=== PATIENT | female | born 1995 | race Caucasian/White ===

== ENCOUNTER → 2020-01-20 12:01 | Outpatient (BNVA) | payer BC, SELFPAY | PROVIDERS: Family Provider Family Medicine; PCP Family Medicine; Visit Provider Nurse Practitioner | DX: Z11.59 Encounter for screening for other viral diseases (principal) | CPT/HCPCS: 87635 ==

== ENCOUNTER 2020-05-15 07:32 | Outpatient (CLI) | payer BC, SELFPAY ==
[2020-05-15 08:04] LABS: Basophils # 0.1 10^3/uL (0.0-0.1); Basophils % 0.5 %; Eosinophils # 0.2 10^3/uL (0.0-0.8); Eosinophils % 1.9 %; Hematocrit 41.8 % (37.0-47.0); Hemoglobin 13.4 g/dL (11.5-15.3); Lymphocytes # 2.8 10^3/uL (0.8-4.8); Lymphocytes % 31.1 %; Mean Corpuscular HGB Conc 32.1 g/dL (30.0-36.0); Mean Corpuscular Hemoglobin 27.6 pg (28.0-34.0); Mean Corpuscular Volume 86.2 fL (81-99); Mean Platelet Volume 10.8 fL (7.4-10.4); Monocytes # 0.6 10^3/uL (0.2-0.9); Monocytes % 6.3 %; Neutrophils # 5.36 10^3/uL (1.8-7.7); Neutrophils % 58.8 %; Nucleated Red Blood Cells % 0 %; Platelet Count 361 10^3/cmm (130-400); Red Blood Count 4.85 10^6/uL (4.1-5.3); Red Cell Distribution Width 13.7 % (12.1-15.1); White Blood Count 9.1 10^3/uL (4.0-10.0)
[2020-05-15 08:21] LABS: Alanine Aminotransferase 27 U/L (0-33); Albumin Level 4.3 g/dL (3.5-5.2); Alkaline Phosphatase 85 IU/L (35-105); Anion Gap 14.2 (5-19); Aspartate Amino Transferase 31 U/L (0-32); Carbon Dioxide 24 mmol/L (22-29); Chloride 105 mmol/L (98-107); Globulin 2.7 g/dL (1.3-4.6); Glucose 113 mg/dL (65-115); Lipase 29 U/L (13-60); Potassium 4.2 mmol/L (3.5-5.1); Sodium 139 mmol/L (136-145); Total Bilirubin 0.5 mg/dL (0.15-1.2)
[2020-05-15 09:47] LABS: Blood Urea Nitrogen 13 mg/dL (6-20); Calcium 8.9 mg/dL (8.5-10.5); Osmolality Calculated 289 mOsm/kg (285-295); Thyroid Stimulating Hormone 0.89 uIU/mL (0.27-4.20)
[2020-05-15 10:18] LABS: Glomerular Filtration Rate 149.1 mL/min (90-130)
== END 2020-05-15 07:33 | disposition home or self-care (01) ==
PROVIDERS: Family Provider Family Medicine; Visit Provider Surgery
DX: K21.9 Gastro-esophageal reflux disease without esophagitis (principal)
CPT/HCPCS: 80053; 83690; 84443; 85025

== ENCOUNTER 2020-05-20 08:08 | Outpatient (CLI) | payer BC, SELFPAY | END 2020-05-20 08:09 | disposition home or self-care (01) | LOC: LAB 08:11 | PROVIDERS: PCP Family Medicine; Visit Provider Surgery | DX: R19.4 Change in bowel habit (principal) | CPT/HCPCS: 83630; 87493; 87506 ==

== ENCOUNTER 2020-09-25 14:31 | Outpatient (CLI) | payer BC, SELFPAY ==
--- NOTE | 2020-09-25 14:36 | CT_ITS ---
WS: [id number] CT pelvis TECHNIQUE: Noncontrast CT of the pelvis with coronal and sagittal reformatted images. CLINICAL INFORMATION: N89.8 - Other specified noninflammatory disorders of vagina COMPARISON: None. DLP: 938.[address] scans at [facility] use at least one of these dose optimization techniques: automat ed exposure control; mA and/or kV adjustment per patient size (includes targeted exams where dose is matched to clinical indication); or iterative reconstruction. FINDINGS: IUD appears in good position. No free fluid in the abdomen or pelvis. Normal noncontrast adnexa. Norm al sigmoid colon. Appendix is normal in right lower quadrant. Tiny fat-containing umbilical hernia. N o inguinal or pelvic lymphadenopathy. Bladder is decompressed. In the area of concern, there is mild distention of the cervix and vagina in determinant on this noncontrast study but may represent secretions or fluid. This is difficult to fur ther evaluate. Lower uterine segment and internal cervical os appear normal CT/CT pelvis wo con [id number] IMPRESSION: 1. IUD in good position. 2. Normal appearing noncontrast uterus and adnexa. 3. Mild distention of the cervix and vagina indeterminate on this noncontrast study but may represent benign low-attenuation secretions or fluid. This is dif ficult to further evaluate without contrast. This can be further evaluated with ultrasound if clinical concern. 4. No free fluid in the pelvis. 5. No pelvic or inguinal lymphadenopathy. 6. Normal sigmoid colon.
== END 2020-09-25 14:32 | disposition home or self-care (01) ==
LOC: RADWPI 14:36
PROVIDERS: PCP Family Medicine; Visit Provider Obstetrics & Gynecology
DX: N89.8 Other specified noninflammatory disorders of vagina (principal); Z97.5 Presence of (intrauterine) contraceptive device
CPT/HCPCS: 72192

== ENCOUNTER 2020-10-05 20:35 | Emergency (ER) | payer BC, SELFPAY ==
[2020-10-05 20:40] VITALS: PULSE 76; RESP 18; TEMP 35.9; O2SAT 96; BMI 41.4
--- NOTE | 2020-10-05 20:48 | W.ED.NAVMDI ---
HPI - Nausea/Vomiting/Diarrhea General: Chief complaint: Nausea/Vomiting/Diarrhea Stated complaint: nausea, vomiting, diarrhea Time Seen by Provider: 10/05/20 20:46 History of Present Illness: HPI Narrative: Patient is a 24-year-old female comes to the ED with nausea vomiting and diarrhea. Patient states that she developed diarrhea on Monday. Today she started developing nausea and has had multiple episodes of emesis. She reports having the chills and is a little diaphoretic especially after she vomits. She has some abdominal cramping and some generalized abdominal pain that developed after all her her vomiting. Patient did say that her son had same symptoms within the last couple days. Denies any vaginal bleeding or vaginal discharge. Patient says she has an IUD placed and her last menstrual period was September 19, 2020. Associated nausea: Yes Associated symtoms: Reports diaphoresis and nausea; Denies change in vision, chest pain, dysuria, fatigue, headache(s) or palpitations Review of Systems Const: Reports: chills, change in appetite (Decreased) and diaphoresis; Denies: fever(s) or fatigue Eyes: Denies: change in vision or eye discomfort ENMT: Denies: throat pain, odynophagia, nasal discharge or nasal congestion Card: Denies: chest pain, palpitations, edema, swelling of feet/ankles, dyspnea on exertion or orthopnea Resp: Denies: dyspnea, productive cough or non-productive cough GI: Reports: nausea, vomiting and diarrhea; Denies: abdominal pain, constipation or hematochezia : Denies: flank pain, dysuria or hematuria Musc: Denies: neck pain, back pain or extremity swelling Skin/Breast: Denies: rash or new lesions Neuro: Denies: headache(s), numbness in extremities or weakness in extremities PFS ED PFSH: Medical History Depression with anxiety Diagnosed at the age of 17 and has been on medication and therapy. This is managed by her primary care provider. Endometriosis Diagnosed at the age of 15 and had a laparoscopy at [facility] in [place] No pertinent past medical history Denies diabetes, asthma, hypertension, seizures, DVT/PE PCP: Dr. Franco Surgical History Status post laparoscopy 2014--diagnostic laparoscopy with removal and ablation of endometriosis performed by Dr. Chaney in [facility]--these records have been requested. Family History Grandfather Colon cancer maternal, daignosed at age 70 Diabetes maternal Heart disease maternal Hyperlipidemia maternal Mother Hypertension Endometriosis Sister Endometriosis Denies family history of Ovarian cancer Breast cancer Uterine cancer Thyroid condition Stroke Social History Smoking and tobacco status: never smoked Alcohol intake: never Female Reproductive History: Date of last menstrual period: 09/19/20 Physical Exam Const: COMMON NORMALS: patient oriented x3 and alert GENERAL APPEARANCE: cooperative, ill appearing and diaphoretic HENMT: COMMON NORMALS: normocephalic HEAD & SCALP: normocephalic MOUTH: moist mucous membranes abnormal Details: parched THROAT: posterior oropharynx normal and uvula midline Eye: COMMON NORMALS: Equal, round and reactive pupils present PUPIL: Yes Equal, round and reactive pupils present Neck/C-Spine: COMMON NORMALS: supple GENERAL: Yes normal visual inspection Resp: COMMON NORMALS: normal respiratory effort, No retractions, No use of accessory muscles and clear to auscultation bilaterally AUSCULTATION: clear to auscultation bilaterally Cardio: COMMON NORMALS: regular rate, regular rhythm, S1 normal heart sound present, S2 normal heart sound present, No gallops present (Cardio), No clicks present (Cardio), No murmurs present (Cardio) and Peripheral pulses 2+ throughout RATE: regular rate RHYTHM: regular rhythm HEART SOUNDS: S1 normal heart sound present and S2 normal heart sound present PERIPHERAL PULSES: Peripheral pulses 2+ throughout GI: COMMON NORMALS: Normal to inspection, nondistended, normoactive bowel sounds present, Soft to palpation and no masses PALPATION: Yes Soft to palpation and Yes Tenderness to palpation present (GI) (Mild generalized tenderness. No localized tenderness. Negative McBurney's) : COMMON NORMALS: Yes no CVA tenderness BLADDER/KIDNEY EXAM: Yes no CVA tenderness Back/Pelvis: COMMON NORMALS: no CVA tenderness Extremity: COMMON NORMALS: normal to inspection and no pedal edema Neuro: COMMON NORMALS: patient oriented x3 and moves all extremities SENSORIUM/ORIENTATION: Yes alert Skin: GENERAL SKIN EXAM: dry skin Course Reevaluation(s): Reevaluation #1: Patient says after she received the Reglan and IV fluids her symptoms have improved. She has not had any more episodes of emesis since Reglan was given. Patient would like to go home and rest. Time: 23:00 Vital Signs: Vital signs: Vital Signs Temperature 96.6 F L 10/05/20 20:40 Pulse Rate 81 10/05/20 23:22 Respiratory Rate 17 10/05/20 23:22 Blood Pressure 132/79 10/05/20 23:22 Pulse Oximetry 100 10/05/20 23:22 MDM - Nausea/Vomiting/Diarrhea MDM Narrative: Medical decision making narrative: Patient is a 24-year-old female comes to the ED with nausea/vomiting and diarrhea. Diarrhea started on Monday and her symptoms of nausea and vomiting started today. Patient says one of her children has same symptoms. Exam shows a 24-year-old female who appears ill and uncomfortable. She has some mild generalized tenderness in the abdomen and no other remarkable exam findings. White blood cell count 15.3 and the rest of CBC and CMP were unremarkable. hCG negative, lipase normal and UA unremarkable as well. Vitals are stable and she is afebrile. CT of abdomen showed no acute findings but did note some possible small bowel enteritis. Patient was given IV fluids, Zofran and Reglan and her symptoms improved. She had no more episodes of emesis after getting Reglan. Patient was discharged home and diagnosed with enteritis sent home with a prescription for Reglan to treat nausea. She was told to continue drinking plenty of fluids and staying hydrated. Return to ED precautions given. Follow-up with PCP in 7 to 10 days reevaluation. Patient understood and agreed with plan. Lab Data: Attestation: I reviewed the patient's lab results. Labs: Lab Results 10/05/20 10/05/20 10/05/20 Range/Units 20:50 20:50 20:50 WBC 15.3 H (4.0-10.0) 10^3/ uL RBC 5.03 (4.1-5.3) 10^6/u L Hgb 14.4 (11.5-15.3) g/dL Hct 43.7 (37.0-47.0) % MCV 86.9 (81-99) fL MCH 28.6 (28.0-34.0) pg MCHC 33.0 (30.0-36.0) g/dL RDW 13.6 (12.1-15.1) % Plt Count 366 (130-400) 10^3/c mm MPV 11.0 H (7.4-10.4) fL Neut % (Auto) 75.8 % Lymph % (Auto) 14.8 % Wythe % (Auto) 6.9 % Eos % (Auto) 1.6 % Baso % (Auto) 0.4 % Neut # (Auto) 11.60 H (1.8-7.7) 10^3/u L Lymph # (Auto) 2.3 (0.8-4.8) 10^3/u L Wythe # (Auto) 1.1 H (0.2-0.9) 10^3/u L Eos # (Auto) 0.3 (0.0-0.8) 10^3/u L Baso # (Auto) 0.1 (0.0-0.1) 10^3/u L Nucleated RBC % (a uto) 0 % Nucleated RBCs # 0.0 /100WBC Sodium 133 L (136-145) mmol/L Potassium 3.9 (3.5-5.1) mmol/L Chloride 102 (98-107) mmol/L Carbon Dioxide 22 (22-29) mmol/L Anion Gap 12.9 (5-19) BUN 12 (6-20) mg/dL Creatinine 0.6 (0.5-0.9) mg/dL GFR Calculation 120.8 (90-130) mL/min Glucose 115 (65-115) mg/dL Calculated Osmolal ity 277 L (285-295) mOsm/k g Calcium 9.4 (8.5-10.5) mg/dL Total Bilirubin 0.5 (0.15-1.2) mg/dL AST 34 H (0-32) U/L ALT 48 H (0-33) U/L Alkaline Phosphata se 82 (35-105) IU/L Total Protein 7.9 (6.6-8.7) g/dL Albumin 4.7 (3.5-5.2) g/dL Globulin 3.2 (1.3-4.6) g/dL Lipase 29 (13-60) U/L HCG, Qual Negative (Negative) Urine Color (Yellow) Urine Appearance (CLEAR) Urine pH (5-7) Ur Specific Gravit y (1.005-1.030) Urine Protein (Negative) Urine Glucose (UA) (Normal) Urine Ketones (Negative) Urine Blood (Negative) Urine Nitrate (Negative) Urine Bilirubin (Negative) Urine Urobilinogen (Negative) mg/dL Ur Leukocyte Aletha ase (Negative) Urine RBC (0-2) /hpf Urine WBC (0-5) /hpf Ur Squamous Epith Cells (0-5) /hpf Amorphous Sediment Urine Bacteria (NONE) /hpf Urine Mucus /hpf 10/05/20 Range/Units 21:40 WBC (4.0-10.0) 10^3/ uL RBC (4.1-5.3) 10^6/u L Hgb (11.5-15.3) g/dL Hct (37.0-47.0) % MCV (81-99) fL MCH (28.0-34.0) pg MCHC (30.0-36.0) g/dL RDW (12.1-15.1) % Plt Count (130-400) 10^3/c mm MPV (7.4-10.4) fL Neut % (Auto) % Lymph % (Auto) % Wythe % (Auto) % Eos % (Auto) % Baso % (Auto) % Neut # (Auto) (1.8-7.7) 10^3/u L Lymph # (Auto) (0.8-4.8) 10^3/u L Wythe # (Auto) (0.2-0.9) 10^3/u L Eos # (Auto) (0.0-0.8) 10^3/u L Baso # (Auto) (0.0-0.1) 10^3/u L Nucleated RBC % (a uto) % Nucleated RBCs # /100WBC Sodium (136-145) mmol/L Potassium (3.5-5.1) mmol/L Chloride (98-107) mmol/L Carbon Dioxide (22-29) mmol/L Anion Gap (5-19) BUN (6-20) mg/dL Creatinine (0.5-0.9) mg/dL GFR Calculation (90-130) mL/min Glucose (65-115) mg/dL Calculated Osmolal ity (285-295) mOsm/k g Calcium (8.5-10.5) mg/dL Total Bilirubin (0.15-1.2) mg/dL AST (0-32) U/L ALT (0-33) U/L Alkaline Phosphata se (35-105) IU/L Total Protein (6.6-8.7) g/dL Albumin (3.5-5.2) g/dL Globulin (1.3-4.6) g/dL Lipase (13-60) U/L HCG, Qual (Negative) Urine Color Yellow (Yellow) Urine Appearance Clear (CLEAR) Urine pH 5 (5-7) Ur Specific Gravit y 1.030 (1.005-1.030) Urine Protein Neg (Negative) Urine Glucose (UA) Norm (Normal) Urine Ketones Negative (Negative) Urine Blood 2+ H (Negative) Urine Nitrate Negative (Negative) Urine Bilirubin 1+ H (Negative) Urine Urobilinogen Norm (Negative) mg/dL Ur Leukocyte Aletha ase Negative (Negative) Urine RBC 0-4 H (0-2) /hpf Urine WBC 0-4 H (0-5) /hpf Ur Squamous Epith Cells 0-4 H (0-5) /hpf Amorphous Sediment Not Reportable Urine Bacteria 1+ H (NONE) /hpf Urine Mucus 1+ /hpf Imaging Data^: CT Abd/Pel: Attestation: I personally reviewed and interpreted this imaging study as follows: Radiologist's impression: [address] [address] [address] Scan Report Signed Patient: Tatiana Jacobson Unit #: [id number] : 1995 Age/Sex: 24 / F ADM Date: 10/05/20 Loc: ER Room/Bed: Attending Dr: Ordering Provider/Ordering MD: Ricky Wasserman Date of Service: 10/05/20 Procedure(s): CT abdomen pelvis w con* [id number] Accession Number(s): [id number] Report Number: [id number] PROCEDURE INFORMATION: Exam: CT Abdomen And Pelvis With Contrast Exam date and time: 10/05/2020 9:29 PM Age: 24 years old Clinical indication: Abdominal tenderness and nausea and vomiting; Prior surgery; Surgery type: Gb, laproscopic; Additional info: N/v/diarrhea x 3 days, and abdominal tenderness TECHNIQUE: Imaging protocol: Computed tomography of the abdomen and pelvis with contrast. Radiation optimization: All CT scans at this facility use at least one of these dose optimization techniques: automated exposure control; mA and/or kV adjustment per patient size (includes targeted exams where dose is matched to clinical indication); or iterative reconstruction. Contrast material: VISI 320; Contrast volume: 95 ml; Contrast route: INTRAVENOUS (IV); COMPARISON: CT pelvis wo con [id number] 09/25/2020 2:40 PM RADIATION DOSE METRICS: Total DLP (mGy-cm): 1857.51 FINDINGS: Liver: Normal. No mass. Gallbladder and bile ducts: Cholecystectomy. No dilation of biliary system. Pancreas: Normal. No ductal dilation. Spleen: Normal. No splenomegaly. Adrenal glands: Normal. No mass. Kidneys and ureters: Normal. No hydronephrosis. Stomach and bowel: Bowel loops are decompressed without obstruction. No evidence perforation. No focal inflammatory wall thickening. Small bowel loops are filled with fluid. Mild increase in mucosal enhancement pattern. Stomach decompressed. Appendix: No evidence of appendicitis. Intraperitoneal space: Unremarkable. No free air. No significant fluid collection. Vasculature: Vascular structures are patent. No aneurysm. No bleeding. Lymph nodes: Unremarkable. No enlarged lymph nodes. Urinary bladder: Bladder decompressed. Reproductive: IUD in the uterus. No adnexal mass. Bones/joints: Unremarkable. No acute fracture. Soft tissues: Unremarkable. CT/CT abdomen pelvis w con* [id number] IMPRESSION: 1. No focal inflammatory process in the abdomen or pelvis identified. 2. No significant changes from 09/25/2020. 3. Small bowel enteritis changes are not excluded. Radiation Dose CTDIVOL = (mGy): DLP = 1857.51 (mGy-cm) Dictated By: Bairon Alvarez Signed By: Bairon Alvarez Signed Date/Time: 10/05/202210 DD/ 09 Discharge Plan Discharge Patient Disposition: Home Clinical Impression: Enteritis Condition: Stable Prescriptions: New metoclopramide HCl 10 mg tablet 10 mg PO Q6H PRN (Reason: nausea and vomiting) Qty: 20 RF: 0 No Action propranolol 60 mg capsule,extended release 24 hr 60 mg PO DAILY RF: 0 sertraline [Zoloft] 100 mg tablet 100 mg PO DAILY RF: 0 Mirena 20 mcg/24 hours (6 yrs) 52 mg intrauterine device See Rx Instructions .ROUTE .COMPLEX RF: 0 Zyrtec 10 mg capsule 10 mg PO DAILY RF: 0 Discharge Orders: Discharge ED (Routine); Ordered 10/05/20 Ordered By: Ricky Wasserman Referrals: Jose Manuel Franco MD [Primary Care Provider] - Discharge Diet: Advance as tolerated Discharge Activity: Increase activity as tolerated Patient Instructions: Viral Syndrome (ED) Activity Restrictions/Additional Instructions: Follow-up with medical provider as directed in 5 to 7 days for reevaluation. Take medications as prescribed. Drink plenty of fluids and stay hydrated. Advance diet as tolerated. Return to the ER or your medical provider if condition worsens. Please read and understand discharge instructions. If any questions, please ask. 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
[2020-10-05] MEDS: sodium chloride 0.9% 1,000 ML 999 ML IV (20:54)
[2020-10-05] MEDS: ondansetron 2 mg/ML SDV 2 mL 4 MG IVP (20:55)
[2020-10-05 20:58] LABS: Basophils # 0.1 10^3/uL (0.0-0.1); Basophils % 0.4 %; Eosinophils # 0.3 10^3/uL (0.0-0.8); Eosinophils % 1.6 %; Hematocrit 43.7 % (37.0-47.0); Hemoglobin 14.4 g/dL (11.5-15.3); Lymphocytes # 2.3 10^3/uL (0.8-4.8); Lymphocytes % 14.8 %; Mean Corpuscular Hemoglobin 28.6 pg (28.0-34.0); Mean Corpuscular Volume 86.9 fL (81-99); Monocytes # 1.1 10^3/uL (0.2-0.9); Monocytes % 6.9 %; Neutrophils % 75.8 %; Nucleated Red Blood Cells % 0 %; Platelet Count 366 10^3/cmm (130-400); Red Blood Count 5.03 10^6/uL (4.1-5.3); Red Cell Distribution Width 13.6 % (12.1-15.1); White Blood Count 15.3 10^3/uL (4.0-10.0)
--- NOTE | 2020-10-05 21:08 | CTR_ITS ---
PROCEDURE INFORMATION: Exam: CT Abdomen And Pelvis With Contrast Exam date and time: 10/05/2020 9:29 PM Age: 24 years old Clinical indication: Abdominal tenderness and nausea and vomiting; Prior surgery; Surgery type: Gb, laproscopic; Additional info: N/v/diarrhea x 3 days, and abdominal tenderness TECHNIQUE: Imaging protocol: Computed tomography of the abdomen and pelvis with contrast. Radiation optimization: All CT scans at this facility use at least one of these dose optimization techniques: automated exposure control; mA and/or kV adjustment per patient size (includes targeted exams where dose is matched to clinical indication); or iterative reconstruction. Contrast material: VISI 320; Contrast volume: 95 ml; Contrast route: INTRAVENOUS (IV); COMPARISON: CT pelvis wo con [id number] 09/25/2020 2:40 PM RADIATION DOSE METRICS: Total DLP (mGy-cm): 1857.51 FINDINGS: Liver: Normal. No mass. Gallbladder and bile ducts: Cholecystectomy. No dilation of biliary system. Pancreas: Normal. No ductal dilation. Spleen: Normal. No splenomegaly. Adrenal glands: Normal. No mass. Kidneys and ureters: Normal. No hydronephrosis. Stomach and bowel: Bowel loops are decompressed without obstruction. No evidence perforation. No focal inflammatory wall thickening. Small bowel loops are filled with fluid. Mild increase in mucosal enhancement pattern. Stomach decompressed. Appendix: No evidence of appendicitis. Intraperitoneal space: Unremarkable. No free air. No significant fluid collection. Vasculature: Vascular structures are patent. No aneurysm. No bleeding. Lymph nodes: Unremarkable. No enlarged lymph nodes. Urinary bladder: Bladder decompressed. Reproductive: IUD in the uterus. No adnexal mass. Bones/joints: Unremarkable. No acute fracture. Soft tissues: Unremarkable. CT/CT abdomen pelvis w con* [id number] IMPRESSION: 1. No focal inflammatory process in the abdomen or pelvis identified. 2. No significant changes from 09/25/2020. 3. Small bowel enteritis changes are not excluded. Radiation Dose CTDIVOL = (mGy): DLP = 1857.51 (mGy-cm)
[2020-10-05 21:17] LABS: HCG, Serum Qual Negative (Negative)
[2020-10-05 21:33] LABS: Alanine Aminotransferase 48 U/L (0-33); Albumin Level 4.7 g/dL (3.5-5.2); Alkaline Phosphatase 82 IU/L (35-105); Anion Gap 12.9 (5-19); Aspartate Amino Transferase 34 U/L (0-32); Blood Urea Nitrogen 12 mg/dL (6-20); Calcium 9.4 mg/dL (8.5-10.5); Carbon Dioxide 22 mmol/L (22-29); Chloride 102 mmol/L (98-107); Globulin 3.2 g/dL (1.3-4.6); Glomerular Filtration Rate 120.8 mL/min (90-130); Glucose 115 mg/dL (65-115); Lipase 29 U/L (13-60); Osmolality Calculated 277 mOsm/kg (285-295); Potassium 3.9 mmol/L (3.5-5.1); Sodium 133 mmol/L (136-145); Total Bilirubin 0.5 mg/dL (0.15-1.2); Total Protein 7.9 g/dL (6.6-8.7)
[2020-10-05] MEDS: iodixanol 320 mg/mL 100mL Btl IV (21:42)
[2020-10-05 21:52] LABS: Bacteria Urine 1+ /hpf; Bilirubin Urine 1+ (Negative); Blood Urine 2+ (Negative); Glucose Urine UA Norm (Normal); Ketones Urine Negative (Negative); Leukocyte Esterase Urine Negative (Negative); Nitrate Urine Negative (Negative); Protein Urine Neg (Negative); RBC Urine 0-4 /hpf (0-2); Squamous Epithelial Cell Urine 0-4 /hpf (0-5); Urine Appearance Clear (CLEAR); Urine Color Yellow (Yellow); Urobilinogen Urine Norm (Negative); WBC Urine 0-4 /hpf (0-5); pH Urine 5 (5-7)
[2020-10-05 21:53] LABS: Mucus Urine 1+ /hpf
[2020-10-05] MEDS: metoclopramide 5 mg/mL SDV 2 mL 10 MG IVP (22:06)
[2020-10-05] MEDS: promethazine 25 mg/mL SDV 1 mL IM (23:14)
[2020-10-05 23:22] VITALS: BP 132/79; PULSE 81; RESP 17; O2SAT 100
== END 2020-10-05 23:22 | disposition home or self-care (01) ==
PROVIDERS: Emergency Provider Physician Assistant; PCP Family Medicine
DX: K52.9 Noninfective gastroenteritis and colitis, unspecified (principal)
CPT/HCPCS: 74177; 80053; 81001; 83690; 84703; 85025; 88175; 96361; 96372; 96374; 96375; 99283; J2405; J2550; J2765; J7030; Q9967

== ENCOUNTER → 2021-04-23 14:03 | Outpatient (BNVA) | payer BC, SELFPAY | PROVIDERS: PCP Nurse Practitioner Family; Visit Provider Obstetrics & Gynecology | DX: N89.8 Other specified noninflammatory disorders of vagina (principal) | CPT/HCPCS: 87635 ==

== ENCOUNTER 2021-04-29 07:51 | Day surgery (SDC) | payer BC, SELFPAY ==
[2021-04-28 12:26] VITALS: BMI 39.9
[2021-04-29] VITALS (14 sets, daily range): BP systolic 122–153; BP diastolic 78–93; PULSE 71–94; RESP 15–21; TEMP 36.7–36.8; O2SAT 93–100
[2021-04-29 08:02] LABS: OR HCG Qualitative Urine Negative (Negative)
[2021-04-29] MEDS: sodium chloride 0.9% 1,000 ML 30 ML IV ×2 (08:10→11:48)
[2021-04-29] MEDS: scopolamine 1.5 Patch 1 PATCH TRANSDERMA (08:15)
--- NOTE | 2021-04-29 08:29 | P.ANESASSM_ITS ---
Pre-Anesthetic Assessment Pre-Anesthetic Assessment: Height/Weight: Height 1.65 m Weight 108.862 kg Temp Pulse Resp BP Pulse Ox 98.1 F 86 18 153/88 98 04/29/21 08:00 04/29/21 08:00 04/29/21 08:00 04/29/21 08:00 04/29/21 08:00 Preop Diagnosis: Vaginal cyst Proposed Procedure: Operation Date: 04/29/21 09:10 Proposed Procedures p Excision of vaginal cyst N89.8 87632(Not Applicable) - Rinku Ríos MD Was Beta Jose Alberto taken within 24 hours: N/A Was Clonidine taken within 24 hours: N/A Last intake: Intake Last Liquid Date 04/28/21 Last Liquid Time 22:15 Last Solid Date 04/28/21 Last Solid Time 20:30 Social: Social History: No tobacco Exam: Pre-Anes Outpt Exam: alert, oriented x 3, clear to auscultation bilaterally and regular rate & rhythm Airway: Submandibular: WNL Cervical ROM: WNL MP: 2 History/ROS: No significant history except as noted (PONV Hx) and No significant complaints Neuropsych: Neuropsych: Anxiety and Depression Anesthetic Plan: ASA status: 2 Anesthesia: Anesthesia Evaluation and General Other: TIVA for severe PONV Risk of > 500 ml blood loss (7ml/kg in children): No Meds/Allergies Current Medications: Current Medications Generic Name Dose Route Start Last Admin Trade Name Freq PRN Reason Stop Dose Admin Sodium Chloride 1,000 mls @ 30 ml s/hr 04/29/21 08:00 04/29/21 08:10 Sodium Chloride 0.9% IV 04/30/21 07:59 30 mls/hr .Q24H LIAM Administration PFSH Anesthesia PFSH: Medical History Depression with anxiety Diagnosed at the age of 17 and has been on medication and therapy. Endometriosis Diagnosed at the age of 15 and had a laparoscopy at [facility] in [place] No pertinent past medical history Denies diabetes, asthma, hypertension, seizures, DVT/PE PCP: Dr. Franco Surgical History S/P laparoscopic cholecystectomy In 2017 Status post laparoscopy 2014--diagnostic laparoscopy with removal and ablation of endometriosis performed by Dr. Chaney in [facility]--these records have been requested and received and scanned. -----> 03/17/2015--multiple implants of endometriosis 2 on the anterior bladder flap, 5 on the left posteriorly, uterosacral ligaments bilaterally and all of these lesions were vaporized with laser. 2 implants on the left side overlying ureter which were not vaporized Family History Grandfather Colon cancer maternal, daignosed at age 70 Diabetes maternal Heart disease maternal Hyperlipidemia maternal Mother Hypertension Endometriosis Sister Endometriosis Denies family history of Ovarian cancer Breast cancer Uterine cancer Thyroid condition Stroke Social History Smoking and tobacco status: never smoked Alcohol intake: never Female Reproductive History: Date of last menstrual period: 04/11/21 Data Anesthesia CBC & Chem 7: 04/29/21 08:10 Other Labs: Laboratory Results - last 48 hr 04/29/21 07:55 Urine HCG, Qual Negative Cardiac Studies: No Data to Display
[2021-04-29 08:30] LABS: Basophils # 0.1 10^3/uL (0.0-0.1); Basophils % 0.7 %; Eosinophils # 0.2 10^3/uL (0.0-0.8); Hematocrit 43.7 % (37.0-47.0); Hemoglobin 14.7 g/dL (11.5-15.3); Lymphocytes # 2.6 10^3/uL (0.8-4.8); Lymphocytes % 29.1 %; Mean Corpuscular HGB Conc 33.6 g/dL (30.0-36.0); Mean Corpuscular Hemoglobin 28.8 pg (28.0-34.0); Mean Corpuscular Volume 85.7 fl (81-99); Mean Platelet Volume 10.5 fL (7.4-10.4); Monocytes # 0.5 10^3/uL (0.2-0.9); Monocytes % 5.8 %; Neutrophils # 5.44 10^3/uL (1.8-7.7); Neutrophils % 61.5 %; Nucleated Red Blood Cells % 0 %; Platelet Count 326 10^3/cmm (130-400); Red Cell Distribution Width 13.1 % (12.1-15.1); White Blood Count 8.8 10^3/uL (4.0-10.0)
[2021-04-29] MEDS: diphenhydrAMINE 50 mg/mL SDV 1mL 12.5 MG IVP (09:40)
--- NOTE | 2021-04-29 09:43 | P.HPUD_ITS ---
Surgery/Procedure H&P Update DATE OF PROCEDURE: April 29, 2021 DATE H&P PERFORMED: 04/06/21 H&P UPDATE INFORMATION: I have reviewed H&P completed within last 30 days, I have examined patient prior to procedure, No changes to prior documentation and H&P is in [facility] EMR on date indicated PREOP DIAGNOSIS: Vaginal cyst PLANNED PROCEDURE: Operation Date: 04/29/21 09:10 Proposed Procedures p Excision of vaginal cyst N89.8 09809(Not Applicable) - Rinku Ríos MD
[2021-04-29] MEDS: vasopressin 20 unit/mL INJ 4 UNIT INJECTION (10:22)
[2021-04-29] MEDS: ondansetron 2 mg/ML SDV 2 mL 4 MG IVP (11:11)
--- NOTE | 2021-04-29 11:13 | PM.OP ---
Operative Report Date of procedure: April 29, 2021 OPERATIVE REPORT Date of surgery: 04/29/2021 Date of dictation: 04/29/2021 Preoperative diagnosis: Vaginal wall cyst Postoperative diagnosis/findings: 5 cm vaginal wall cyst about 2 to 3 cm from the introitus in the posterior wall extending from 5:00 to 7:00. A secondary cyst was noted up in the lateral fornix on the right side measuring about 1 cm with clear fluid which was drained. Procedure done: Vaginal wall cyst excision Specimens removed/disposition of specimens: Vaginal tissue, cyst wall and cyst contents Surgeon: Dr. Rinku Burch inside sales assistant: Cheryl Jennings Anesthesia: IV sedation Estimated blood loss: 50 ml Intravenous fluids: 900 mL of LR Urine output: 100 mL of clear urine at the end of procedure via red rubber catheter at the start of procedure. Medications: As per anesthesia records Complications: None, patient was left to recover in a stable condition PROCEDURE: After informed consent was obtained patient was taken to the operating room where she was placed under sedation by anesthesia. Good anesthesia/analgesia was obtained and patient was placed in the dorsal lithotomy position with care taken to avoid pressure points. Examination under anesthesia revealed a small uterus with IUD strings seen from the cervix. Patient was prepped and draped in the usual sterile fashion without any difficulty. Red rubber catheter was placed and about 100 mL of clear urine was obtained at the end of catheterization. Weighted speculum and anterior wall retractors were placed and the IUD strings were seen. Vaginal tissue was examined in detail starting from the fornices proceeding outwards. A small 1 cm clear cyst was noted in the right lateral fornix which appeared to have cleared tissue. The cyst had not been previously noted in the office. Again noticed was the 3 to 4 cm cyst with yellowish fluid noted from about 4:00 to 7:00 about the size of a plum in the posterior vaginal wall. Rectal exam was done and this was not noted to be connected to the cyst. Attention was first turned towards the cyst on the lateral fornix and this was excised in total after infiltrating the area with Pitressin without any difficulty. During cyst excision it ruptured. This area of defect was then reapproximated with 3-0 Vicryl in a continuous interlocking fashion. Good hemostasis and reapproximation was obtained. Tenaculum had been placed on cervix to help mobilize it and once this tenaculum was removed there was bleeding from the tenaculum and a [id number] suture was placed on the anterior and posterior cervical lips taking care to avoid the IUD sutures. Good hemostasis was achieved with this. Attention was then turned towards the posterior vaginal wall cyst. Again this area was infiltrated with Pitressin and the vaginal tissue over the cyst was incised using a scalpel and attempt was made to peel the vaginal mucosa of the cyst wall. The cyst wall was thin and ruptured and mucoid jellylike material which was pale yellow in color was obtained. This was collected and sent along with cyst wall and vaginal tissue to pathology. As much of the cyst wall that could be excised was taken out. Redundant vaginal tissue was excised. Once cyst wall excision was done completely rectal exam was done and this area was separate from the rectum and no rectal tear was noted. The vaginal defect was closed in 2 layers with continuous interlocking sutures and good hemostasis and reapproximation was obtained. Rectal exam was once again done and no suture or defect was noted in the rectal mucosa. IUD strings were in place when procedure was done and good hemostasis was noted. Lap needle and instrument counts were correct x2. Patient was extubated and cleaned well and taken to the recovery room in a stable condition FOLLOW UP: Follow-up in 2 weeks and 6 weeks with surgeon MEDICATION ON DISCHARGE: Colace 100 mg by mouth every 12 hours when necessary constipation, 30 tablets, no refills Ibuprofen 800 mg by mouth every 8 hours when necessary pain, 60 tablets, no refills. [place] 5/325 mg 1 tablet by mouth every 6 hours when necessary pain, tablets, no refills Continue other home medication DISPOSITION: Home in a stable condition This documentation was created by [employer] extractor operator solvent process software (known for inherent extractor operator solvent process error). Every effort was made to assure accuracy of extractor operator solvent process. Any obvious errors or omissions should be clarified with the author of the document. Pre-op Diagnosis: Vaginal cyst
[2021-04-29] MEDS: fentaNYL 50 mcg/mL INJ 2mL IVP ×2 (11:16→11:31)
[2021-04-29] MEDS: famotidine 20 mg/2 mL INJ IVP (11:27)
[2021-04-29] MEDS: ibuprofen 800 mg tablet PO (12:05)
[2021-04-29] MEDS: HYDROcodone-acetaminophen 5-325 mg Tablet 1 TAB PO (12:05)
--- NOTE | 2021-04-29 12:54 | ANE.PACU2 ---
Inpatient post-anesthesia follow up: Airway intact: Yes Vital signs: Temperature 98.3 F Pulse Rate 81 Respiratory Rate 18 Blood Pressure 131/82 Pulse Oximetry 98 Oxygen Delivery Me thod Room Air Oxygen Flow Rate Fraction of Inspir ed Oxygen Hydration adequate: Yes Nausea and vomiting: No Pain level: 2 Mental status: Baseline
== END 2021-04-29 12:34 | disposition home or self-care (01) ==
PROVIDERS: Student in an Organized Health Care Education/Training Program; PCP Nurse Practitioner Family; Visit Provider Obstetrics & Gynecology
PROC: (CPT 57135; principal; 2021-04-29 09:10)
DX: N89.8 Other specified noninflammatory disorders of vagina (principal)
CPT/HCPCS: 57135; 36415; 81025; 84703; 85025; 86850; 86900; 96374; J1200; J2250; J2405; J2704; J3010; J3490; J7030

== ENCOUNTER 2021-07-05 06:49 | Outpatient (CLI) | payer BC, SELFPAY ==
[2021-07-05 07:56] LABS: Free T4 Free Thyroxine 1.07 ng/dL (0.82-1.77); Thyroid Stimulating Hormone 1.57 uIU/mL (0.27-4.20)
== END 2021-07-05 06:50 | disposition home or self-care (01) ==
LOC: LAB 06:55
PROVIDERS: PCP Nurse Practitioner Family; Visit Provider Nurse Practitioner Family
DX: R53.83 Other fatigue (principal)
CPT/HCPCS: 36415; 84439; 84443

== ENCOUNTER → 2021-07-10 17:03 | Outpatient (BNVA) | payer BC, SELFPAY | PROVIDERS: PCP Nurse Practitioner Family; Visit Provider Family Medicine | DX: J01.90 Acute sinusitis, unspecified (principal) | CPT/HCPCS: 87400 ==

== ENCOUNTER 2021-09-25 06:54 | Emergency (ER) | payer BC, SELFPAY ==
[2021-09-25] VITALS (7 sets, daily range): BP systolic 115–144; BP diastolic 63–108; PULSE 59–85; RESP 15–18; TEMP 37.1; O2SAT 97–99; BMI 39.9
--- NOTE | 2021-09-25 07:28 | ED_ITS ---
HPI - Abdominal Pain General: Chief Complaint: Abdominal Pain Stated Complaint: abdominal pain Time Seen by Provider: 09/25/21 07:00 Source: patient Mode of arrival: ambulatory Limitations: no limitations History of Present Illness: 25-year-old female presents emergency room with complaint of right lower quadrant abdominal pain began last night around 830. She is not had any vomiting but has had some nausea no hematochezia melena hematemesis cough congestion no dysuria urgency or frequency. Patient previously has had a cholecystectomy and has had some [place] surgeries. Currently does have an IUD. No vaginal discharge. No fever sweats or chills decreased appetite this morning. MD elicited complaint: abdominal pain Pertinent past history: none Onset (ago): hour(s) (12) Pain Consistency: constant Location: RLQ Severity: moderate Quality: cramping Radiation: none Migration to: no migration Exacerbating factors: nothing Relieving factors: nothing Associated Symptoms: Reports anorexia, GI cramping, nausea and poor appetite; Denies belching, bloating, change in bowel habits, change in stool character, chills, coffee ground emesis, constipation, diarrhea, dyspepsia, dysuria, excessive flatus, fever(s), heartburn, hematochezia, hematuria, hematemesis, fe sol incontinence, loose stools, melena, syncope and vomiting Treatments prior to arrival: NSAIDs Related Data: Date of Last Menstrual Period: 04/11/21 Review of Systems Const: Denies: fever(s) or chills ENMT: Denies: throat pain, ear or mastoid pain, nasal discharge or nasal congestion Card: Denies: syncope Resp: Denies: dyspnea, productive cough or non-productive cough GI: Reports: abdominal pain, nausea and GI cramping; Denies: vomiting, hematemesis, coffee ground emesis, heartburn, diarrhea, constipation, bloating, belching, excessive flatus, fecal incontinence, change in bowel habits, change in stool character, hematochezia or melena : Denies: flank pain, difficulty voiding, dysuria, urinary frequency, urinary urgency or hematuria Skin/Breast: Denies: rash or pruritus PFSH ED PFSH: Medical History Depression with anxiety Diagnosed at the age of 17 and has been on medication and therapy. Endometriosis Diagnosed at the age of 15 and had a laparoscopy at [facility] in [place] No pertinent past medical history Denies diabetes, asthma, hypertension, seizures, DVT/PE PCP: Dr. Franco Surgical History History of vaginal surgery 04/29/2021--excision of 4 cm cyst from posterior vaginal wall performed by Dr. Burch at [facility] [place] Pathology showed benign cyst without malignancy S/P laparoscopic cholecystectomy In 2017 Status post laparoscopy 2014--diagnostic laparoscopy with removal and ablation of endometriosis performed by Dr. Chaney in [facility]--these records have been requested and rece ived and scanned. -----> 03/17/2015--multiple implants of endometriosis 2 on the anterior bladder flap, 5 on the left posteriorly, uterosacral ligaments bilaterally and all of these lesions were vaporized with laser. 2 implants on the left side overlying ureter which were not vaporized Family History Grandfather Colon cancer maternal, daignosed at age 70 Diabetes maternal Heart disease maternal Hyperlipidemia maternal Mother Hypertension Endometriosis Sister Endometriosis Denies family history of Ovarian cancer Breast cancer Uterine cancer Thyroid condition Stroke Female Reproductive History: Date of last menstrual period: 04/11/21 Physical Exam Const: GENERAL APPEARANCE: cooperative and comfortable ORIENT ATION/CONSCIOUSNESS: Yes awake, Yes oriented to person, Yes oriented to place and Yes oriented to time HENMT: COMMON NORMALS: normocephalic, atraumatic and hearing grossly normal bilaterally HEAD & SCALP: normocephalic and atraumatic Neck/C-Spine: COMMON NORMALS: no JVD Resp: COMMON NORMALS: normal respiratory effort, No retractions, No use of accessory muscles and clear to auscultation bilaterally AUSCULTATION: clear to auscultation bilaterally Cardio: COMMON NORMALS: no JVD, regular rate, regular rhythm and No murmurs present (Cardio) RATE: regular rate RHYTHM: regular rhythm GI: COMMON NORMALS: No hepatosplenomegaly present AUSCULTATION: Yes normoactive bowel sounds PALPATION: Yes Tenderness to palpation present (GI) Details: RLQ, No Guarding due to palpation present (GI) and Yes No hepatosplenomegaly present Extremity: COMMON NORMALS: normal to inspection, capillary refill normal, no c lubbing, cyanosis or edema, no calf tenderness and no pedal edema Neuro: SENSORIUM/ORIENTATION: Yes oriented to person, Yes oriented to place and Yes oriented to time Skin: COMMON NORMALS: no rashes or lesions noted GENERAL SKIN EXAM: no rashes or lesions noted Course Vital Signs: Vital signs: Vital Signs Temperature 98.7 F 09/25/21 07:03 Pulse Rate 59 L 09/25/21 10:47 Respiratory Rate 16 09/25/21 10:47 Blood Pressure 115/72 09/25/21 10:47 Pulse Oximetry 97 09/25/21 10:47 MDM - Abdominal Pain Medical Decision Making Labs and imaging reviewed discussed with patient discharge home clear liquid diet also started on Zofran to use as needed recheck if not improving. No acute appendicitis on CT. Medical Records I reviewed the patient's medical records. Lab Data I reviewed the patient's lab results. : 09/25/21 07:30 09/25/21 07:30 Labs/Radiology: Radiology Impressions Abdomen/Pelvis CT 09/25/21 07:29 IMPRESSION: 1. No acute abnormality demonstrated. 2. Tiny punctate nonobstructing left renal upper pole calculus. 3. Previous cholecystectomy. Laboratory Results WBC 9.0 10^3/uL (4.0-10.0) 09/25/21 07:30 RBC 5.41 10^6/uL (4.1-5.3) H 09/25/21 07:30 Hgb 15.6 g/dL (11.5-15.3) H 09/25/21 07:30 Hct 46.1 % (37.0-47.0) 09/25/21 07:30 MCV 85.2 fl (81-99) 09/25/21 07:30 MCH 28.8 pg (28.0-34.0) 09/25/21 07:30 MCHC 33.8 g/dL (30.0-36.0) 09/25/21 07:30 RDW 13.2 % (12.1-15.1) 09/25/21 07:30 Plt Count 323 10^3/cmm (130-400) 09/25/21 07:30 MPV 11.2 fL (7.4-10.4) H 09/25/21 07:30 Neut % (Auto) 71.3 % 09/25/21 07:30 Lymph % (Auto) 19.8 % 09/25/21 07:30 [place] % (Auto) 5.1 % 09/25/21 07:30 Eos % (Auto) 2.6 % 09/25/21 07:30 Baso % (Auto) 0.6 % 09/25/21 07:30 Neut # (Auto) 6.43 10^3/uL (1.8-7.7) 09/25/21 07:30 Lymph # (Auto) 1.8 10^3/uL (0.8-4.8) 09/25/21 07:30 [place] # (Auto) 0.5 10^3/uL (0.2-0.9) 09/25/21 07:30 Eos # (Auto) 0.2 10^3/uL (0.0-0.8) 09/25/21 07:30 Baso # (Auto) 0.1 10^3/uL (0.0-0.1) 09/25/21 07:30 Nucleated RBC % (auto) 0 % 09/25/21 07:30 Nucleated RBCs # 0.0 /100WBC 09/25/21 07:30 Sodium 134 mmol/L (136-145) L 09/25/21 07:30 Potassium 5.0 mmol/L (3.5-5.1) 09/25/21 07:30 Chloride 103 mmol/L (98-107) 09/25/21 07:30 Carbon Dioxide 21 mmol/L (22-29) L 09/25/21 07:30 Anion Gap 15.0 (5-19) 09/25/21 07:30 BUN 15 mg/dL (6-20) 09/25/21 07:30 Creatinine 0.7 mg/dL (0.5-0.9) 09/25/21 07:30 GFR Calculation 100.4 mL/min (90-130) 09/25/21 07:30 Glucose 116 mg/dL (65-115) H 09/25/21 07:30 Calculated Osmolality 280 mOsm/kg (285-295) L 09/25/21 07:30 Calcium 9.9 mg/dL (8.5-10.5) 09/25/21 07:30 Total Bilirubin 0.3 mg/dL (0.15-1.2) 09/25/21 07:30 AST 16 U/L (0-32) 09/25/21 07:30 ALT 28 U/L (0-33) 09/25/21 07:30 Alkaline Phosphatase 65 IU/L (35-105) 09/25/21 07:30 Total Protein 7.3 g/dL (6.6-8.7) 09/25/21 07:30 Albumin 4.8 g/dL (3.5-5.2) 09/25/21 07:30 Globulin 2.5 g/dL (1.3-4.6) 09/25/21 07:30 Lipase 38 U/L (13-60) 09/25/21 07:30 HCG, Qual Negative (Negative) 09/25/21 07:42 Urine Color Straw (Yellow) 09/25/21 08:15 Urine Appearance Clear (CLEAR) 09/25/21 08:15 Urine pH 5 (5-7) 09/25/21 08:15 Ur Specific [place] 1.025 (1.005-1.030) 09/25/21 08:15 Urine Protein Neg (Negative) 09/25/21 08:15 Urine Glucose (UA) Norm (Normal) 09/25/21 08:15 Urine Ketones Negative (Negative) 09/25/21 08:15 Urine Blood 2+ (Negative) H 09/25/21 08:15 Urine Nitrate Negative (Negative) 09/25/21 08:15 Urine Bilirubin Neg (Negative) 09/25/21 08:15 Urine Urobilinogen Norm mg/dL (Negative) 09/25/21 08:15 Ur Leukocyte Esterase Negative (Negative) 09/25/21 08:15 Urine RBC 0-4 /hpf (0-2) H 09/25/21 08:15 Urine WBC Rare /hpf (0-5) 09/25/21 08:15 Ur Squamous Epith Cells 10-15 /hpf (0-5) H 09/25/21 08:15 Amorphous Sediment Not Reportable 09/25/21 08:15 Urine Bacteria Trace /hpf (NONE) 09/25/21 08:15 Urine Mucus 1+ /hpf 09/25/21 08:15 Discharge Plan Discharge Patient Disposition: Home Clinical Impression: Abdominal pain Condition: Stable Prescriptions: New Zofran 4 mg tablet 4 mg PO Q6H PRN (Reason: nausea and vomiting) Qty: 20 0RF No Action Mirena 20 mcg/24 hours (6 yrs) 52 mg intrauterine device See Rx Instructions .ROUTE .COMPLEX 0RF Label Comments: Inserted January 2019 Rx Instructions: intrauterinely, use as directed minoxidil 5 % foam 1 ea topical DAILY Qty: 60 6RF doxycycline hyclate 100 mg capsule 100 mg PO BID 5 Days Qty: 10 0RF prednisone 20 mg tablet 20 mg PO DAILY 5 Days Qty: 5 0RF levocetirizine [Xyzal] 5 mg tablet 5 mg PO .nightly PRN (Reason: allergy symptoms) 15 Days Qty: 15 0RF Rx Instructions: donot take with other allergy medications Zyrtec 10 mg capsule 10 mg PO DAILY 0RF psyllium husk [Metamucil] 0.52 gram capsule 0.52 g PO DAILY 0RF tretinoin (emollient) 0.05 % cream 1 applic topical Q7D Qty: 40 0RF clindamycin phosphate 1 % foam 1 applic topical DAILY Qty: 100 0RF Trintellix 10 mg tablet 10 mg PO DAILY Qty: 90 3RF clonazepam 0.5 mg tablet 0.5 mg PO BID PRN (Reason: anxiety) Qty: 60 0RF docusate sodium 100 mg Capsule 100 mg PO BID PRN (Reason: constipation) Qty: 30 0RF Discharge Orders: Discharge ED (Routine); Ordered 09/25/21 Ordered By: Son Man Referrals: Payton Dennis FNP-C [Primary Care Provider] - Discharge Diet: Clear Liquid Discharge Activity: Increase activity as tolerated Activity Restrictions/Additional Instructions: If symptoms persist follow-up with your primary care physician. If worsen return to the emergency room. Coding Level of Care Code ED Manufacturing Director for Zhang Fwd Exam Comprehensive
--- NOTE | 2021-09-25 07:29 | CTR_ITS ---
PROCEDURE INFORMATION: Exam: CT Abdomen And Pelvis With Contrast Exam date and time: 09/25/2021 8:22 AM Age: 25 years old Clinical indication: Abdominal pain; Localized; Right lower quadrant (rlq); Prior surgery; Surgery date: 6+ months; Surgery type: Gb; Patient HX: Iud; Additional info: Abd pain TECHNIQUE: Imaging protocol: Computed tomography of the abdomen and pelvis with contrast. Radiation optimization: All CT scans at this facility use at least one of these dose optimization techniques: automated exposure control; mA and/or kV adjustment per patient size (includes targeted exams where dose is matched to clinical indication); or iterative reconstruction. Contrast material: OMNIPAQUE 300; Contrast volume: 95 ml; Contrast route: INTRAVENOUS (IV); COMPARISON: CT abdomen pelvis w con* [id number] 10/05/2020 9:56 PM RADIATION DOSE METRICS: Total DLP (mGy-cm): 1945.99 FINDINGS: Lungs: Small right lower lobe calcified granuloma. Liver: No acute abnormality. No mass. Gallbladder and bile ducts: Previous cholecystectomy. No biliary ductal dilatation. Pancreas: No acute abnormality. No ductal dilation. Spleen: No acute abnormality. Adrenal glands: No acute abnormality. No mass. Kidneys and ureters: Tiny punctate nonobstructing left renal upper pole calculus. No hydronephrosis, hydroureter or distal urinary calculus. Redemonstrated incidental tiny 6 mm right renal cortical cyst. Stomach and bowel: No acute abnormality. No obstruction. No significant bowel thickening. Appendix: Grossly normal nondilated visualized appendix. Intraperitoneal space: No significant fluid collection. No free air. Vasculature: No acute abnormality. No abdominal aortic aneurysm. Lymph nodes: No enlarged lymph nodes. Urinary bladder: Nondistended urinary bladder. No bladder calculi. Reproductive: IUD in place within the uterus, unchanged in position. Incidental small involuting right ovarian corpus luteal cyst. Bones/joints: No acute osseous abnormality. No dislocation. Soft tissues: No significant soft tissue abnormalities. CT/CT abdomen pelvis w con* [id number] IMPRESSION: 1. No acute abnormality demonstrated. 2. Tiny punctate nonobstructing left renal upper pole calculus. 3. Previous cholecystectomy.
[2021-09-25 07:39] LABS: Basophils # 0.1 10^3/uL (0.0-0.1); Basophils % 0.6 %; Eosinophils # 0.2 10^3/uL (0.0-0.8); Eosinophils % 2.6 %; Hematocrit 46.1 % (37.0-47.0); Hemoglobin 15.6 g/dL (11.5-15.3); Lymphocytes # 1.8 10^3/uL (0.8-4.8); Lymphocytes % 19.8 %; Mean Corpuscular HGB Conc 33.8 g/dL (30.0-36.0); Mean Corpuscular Hemoglobin 28.8 pg (28.0-34.0); Mean Corpuscular Volume 85.2 fl (81-99); Mean Platelet Volume 11.2 fL (7.4-10.4); Monocytes # 0.5 10^3/uL (0.2-0.9); Monocytes % 5.1 %; Neutrophils # 6.43 10^3/uL (1.8-7.7); Neutrophils % 71.3 %; Nucleated Red Blood Cells % 0 %; Platelet Count 323 10^3/cmm (130-400); Red Blood Count 5.41 10^6/uL (4.1-5.3); Red Cell Distribution Width 13.2 % (12.1-15.1)
[2021-09-25] MEDS: ondansetron 2 mg/ML SDV 2 mL 4 MG IVP (07:56)
[2021-09-25] MEDS: morphine 4 mg/mL SDV 1 mL IVP (07:59)
[2021-09-25 08:03] LABS: HCG, Serum Qual Negative (Negative)
[2021-09-25] MEDS: lactated ringers 1,000 ML 999 ML IV (08:13)
[2021-09-25 08:14] LABS: Alanine Aminotransferase 28 U/L (0-33); Albumin Level 4.8 g/dL (3.5-5.2); Alkaline Phosphatase 65 IU/L (35-105); Aspartate Amino Transferase 16 U/L (0-32); Blood Urea Nitrogen 15 mg/dL (6-20); Calcium 9.9 mg/dL (8.5-10.5); Carbon Dioxide 21 mmol/L (22-29); Chloride 103 mmol/L (98-107); Globulin 2.5 g/dL (1.3-4.6); Glomerular Filtration Rate 100.4 mL/min (90-130); Glucose 116 mg/dL (65-115); Lipase 38 U/L (13-60); Osmolality Calculated 280 mOsm/kg (285-295); Sodium 134 mmol/L (136-145); Total Bilirubin 0.3 mg/dL (0.15-1.2); Total Protein 7.3 g/dL (6.6-8.7)
[2021-09-25] MEDS: iohexol 300 mg/mL 100 mL Btl IV (08:20)
[2021-09-25 09:49] LABS: Urine Appearance Clear (CLEAR)
[2021-09-25 09:50] LABS: Add Urine Microscopic? YES; Bilirubin Urine Neg (Negative); Blood Urine 2+ (Negative); Glucose Urine UA Norm (Normal); Ketones Urine Negative (Negative); Leukocyte Esterase Urine Negative (Negative); Nitrate Urine Negative (Negative); Protein Urine Neg (Negative); Specific Gravity, Urine 1.025 (1.005-1.030); Urine Color Straw (Yellow); Urobilinogen Urine Norm (Negative); pH Urine 5 (5-7)
[2021-09-25 09:52] LABS: Add Urine Culture? No; Bacteria Urine TRACE /hpf; Mucus Urine 1+ /hpf; RBC Urine 0-4 /hpf (0-2); WBC Urine RARE /hpf (0-5)
== END 2021-09-25 10:48 | disposition home or self-care (01) ==
PROVIDERS: Emergency Provider Family Medicine; PCP Nurse Practitioner Family
DX: R10.31 Right lower quadrant pain (principal)
CPT/HCPCS: 74177; 80053; 81001; 83690; 84703; 85025; 96361; 96374; 96375; 99284; J2270; J2405; Q9967

== ENCOUNTER 2022-01-13 12:57 | Outpatient (CLI) | payer BC, SELFPAY ==
--- NOTE | 2022-01-13 13:12 | XRR_ITS ---
PROCEDURE INFORMATION: Exam: XR Chest Exam date and time: 01/13/2022 1:41 PM Age: 26 years old Clinical indication: Cough; Additional info: Chronic cough TECHNIQUE: Imaging protocol: Radiologic exam of the chest. Views: 2 views. COMPARISON: CT abdomen pelvis w con* [id number] 09/25/2021 8:22 AM FINDINGS: Lungs: Unremarkable. No consolidation. Pleural spaces: Unremarkable. No pleural effusion. No pneumothorax. Heart/Mediastinum: Unremarkable. No cardiomegaly. Bones/joints: Unremarkable. XR/XR chest 2V* [id number] IMPRESSION: No acute findings.
== END 2022-01-13 12:58 | disposition home or self-care (01) ==
PROVIDERS: Visit Provider Internal Medicine Critical Care Medicine
DX: R05.3 Chronic cough (principal)
CPT/HCPCS: 71046

== ENCOUNTER 2022-01-15 19:19 | Emergency (ER) | payer BC, SELFPAY ==
[2022-01-15 19:32] VITALS: BP 139/98; PULSE 94; RESP 18; TEMP 37; O2SAT 97; BMI 41.2
[2022-01-15 21:57] LABS: Rapid Strep A Test Negative (Negative)
--- NOTE | 2022-01-15 22:01 | XRR_ITS ---
PROCEDURE INFORMATION: Exam: XR Chest Exam date and time: 01/15/2022 10:08 PM Age: 26 years old Clinical indication: Patient HX: C/O sore throat, fever and cough; Additional info: Cough, fever TECHNIQUE: Imaging protocol: Radiologic exam of the chest. Views: 1 view. COMPARISON: CR XR chest 2V* [id number] 01/13/2022 1:41 PM FINDINGS: Lungs: Lungs are clear bilaterally. Pleural spaces: No pleural effusion. No pneumothorax. Heart/Mediastinum: The cardiac silhouette and mediastinal contours are unremarkable. Bones/joints: Unremarkable for age. XR/XR chest 1V portable [id number] IMPRESSION: Negative chest radiograph.
--- NOTE | 2022-01-15 22:03 | ED_ITS ---
HPI - General Adult General: Chief complaint: General Medical Stated complaint: sore throat/cough/fatigue x 3wks Time Seen by Provider: 01/15/22 21:33 History of Present Illness: Patient is a 26-year-old female comes to the ED with upper respiratory symptoms. Patient has been having symptoms for the past 3 weeks. She was swabbed for COVID when symptoms initially started and COVID swab was negative. She has been having a dry cough, body aches, neck pain, fevers, sore throat and diarrhea. She says her sore throat seems to be getting worse and anterior part of her neck feels sore and tender. Patient has seen a provider twice now since onset of symptoms and they put her on an antibiotic and given her steroid and nothing has helped. Endorses some fatigue and dizziness. She feels dehydrated that she has not been keeping up with her fluid intake during her episodes of diarrhea. her children had similar symptoms around the same time she started getting her symptoms and they recovered within a couple of days, but patient says she is just not getting any better. Associated symptoms: Deny chest pain, dyspnea, headache(s), nausea, rash, palpitations or vomiting Review of Systems Const: Reports: fever(s), body aches and fatigue; Denies: chills Eyes: Denies: change in vision or eye discomfort ENMT: Reports: throat pain and odynophagia; Denies: nasal discharge or nasal congestion Card: Denies: chest pain, palpitations, edema, swelling of feet/ankles, dyspnea on exertion or orthopnea Resp: Reports: non-productive cough; Denies: dyspnea or productive cough GI: Reports: diarrhea; Denies: abdominal pain, nausea, vomiting, constipation or hematochezia : Denies: flank pain, dysuria or hematuria Musc: Denies: neck pain, back pain or extremity swelling Skin/Breast: Denies: rash or new lesions Neuro: Denies: headache(s), numbness in extremities or weakness in extremities PFS ED PFSH: Medical History Allergic rhinitis due to allergen Bronchitis Depression with anxiety Diagnosed at the age of 17 and has been on medication and therapy. Endometriosis Diagnosed at the age of 15 and had a laparoscopy at [facility] in [place] No pertinent past medical history Denies diabetes, asthma, hypertension, seizures, DVT/PE PCP: Dr. Franco Surgical History History of vaginal surgery 04/29/2021--excision of 4 cm cyst from posterior vaginal wall performed by Dr. Burch [place] [facility] [place] showed benign cyst without malignancy S/P laparoscopic cholecystectomy In 2017 Status post laparoscopy 2014--diagnostic laparoscopy with removal and ablation of endometriosis performed by Dr. Chaney in [facility]--these records have been requested and rece ived and scanned. -----> 03/17/2015--multiple implants of endometriosis 2 on the anterior bladder flap, 5 on the left posteriorly, uterosacral ligaments bilaterally and all of these lesions were vaporized with laser. 2 implants on the left side overlying ureter which were not vaporized Family History Grandfather Colon cancer maternal, daignosed at age 70 Diabetes maternal Heart disease maternal Hyperlipidemia maternal Mother Hypertension Endometriosis Sister Endometriosis Denies family history of Ovarian cancer Breast cancer Uterine cancer Thyroid condition Stroke Social History Smoking and tobacco status: never smoked Female Reproductive History: Date of last menstrual period: 04/11/21 Physical Exam Const: COMMON NORMALS: patient oriented x3 and alert GENERAL APPEARANCE: cooperative HENMT: COMMON NORMALS: normocephalic HEAD & SCALP: normocephalic MOUTH: Normal oral and palatal mucosa present THROAT: posterior oropharynx normal and uvula midline Eye: COMMON NORMALS: Equal, round and reactive pupils present and conjunctivae normal CONJUNCTIVA: Yes conjunctivae normal PUPIL: Yes Equal, round and reactive pupils present Neck/C-Spine: COMMON NORMALS: supple and no meningeal signs GENERAL: Yes normal visual inspection Resp: COMMON NORMALS: normal respiratory effort, No retractions, No use of a ccessory muscles and clear to auscultation bilaterally AUSCULTATION: clear to auscultation bilaterally Cardio: COMMON NORMALS: regular rate, regular rhythm, S1 normal heart sound present, S2 normal heart sound present, No gallops present (Cardio), No clicks present (Cardio), No murmurs present (Cardio) and Peripheral pulses 2+ throughout RATE: regular rate RHYTHM: regular rhythm HEART SOUNDS: S1 normal heart sound present and S2 normal heart sound present PERIPHERAL PULSES: Peripheral pulses 2+ throughout GI: COMMON NORMALS: Normal to inspection, nondistended, normoactive bowel sounds present, Soft to palpation, non-tender and no masses PALPATION: Yes Soft to palpation : COMMON NORMALS: Yes no CVA tenderness BLADDER/KIDNEY EXAM: Yes no CVA tenderness Back/Pelvis: COMMON NORMALS: no CVA tenderness Extremity: COMMON NORMALS: normal to inspection Neuro: COMMON NORMALS: patient oriented x3 and moves all extremities SENSORIUM/ORIENTATION: Yes alert MENINGEAL SIGNS: Yes no meningeal signs Skin: GENERAL SKIN EXAM: dry skin Course ED course: Patient's symptoms improved after IV fluids and Toradol. Vital Signs: Vital signs: Vital Signs Temperature 98.6 F 01/15/22 19:32 Pulse Rate 94 01/15/22 19:32 Respiratory Rate 18 01/15/22 19:32 Blood Pressure 139/98 01/15/22 19:32 Pulse Oximetry 97 01/15/22 19:32 MDM - General Adult Medical Decision Making Patient is a 26-year-old female comes to the ED with upper respiratory symptoms. Patient has been having symptoms for the past 3 weeks. She is been seen by her PCP twice over the past 2 weeks and patient has been on antibiotics and steroids recently as well. She had a negative COVID test at PCP office a couple weeks ago when symptoms first started. Vitals are stable. Patient appears nontoxic and in no acute distress or pain. Her exam is benign. White blood cell count 12.7 but that is likely due to her recent IM dose of steroid given by PCP couple days ago. Rest of her labs were unremarkable. Strep and mono were negative. Blood culture pending. Chest x-ray showed no acute findings. She was given 2 L of IV fluids, Zofran, Toradol and Norflex and her symptoms did improve. Patient diagnosed with viral syndrome and was discharged home. Told to follow-up with PCP within the next week for reevaluation. Return to ED precautions given. Patient understood and agreed with plan. Lab Data I reviewed the patient's lab results. : 01/15/22 23:05 01/15/22 23:05 Radiology Impressions Chest X-Ray 01/15/22 22:01 IMPRESSION: Negative chest radiograph. Laboratory Results WBC 12.7 10^3/uL (4.0-10.0) H 01/15/22 23:05 RBC 4.56 10^6/uL (4.1-5.3) 01/15/22 23:05 Hgb 13.4 g/dL (11.5-15.3) 01/15/22 23:05 Hct 38.2 % (37.0-47.0) 01/15/22 23:05 MCV 83.8 fl (81-99) 01/15/22 23:05 MCH 29.4 pg (28.0-34.0) 01/15/22 23:05 MCHC 35.1 g/dL (30.0-36.0) 01/15/22 23:05 RDW 12.5 % (12.1-15.1) 01/15/22 23:05 Plt Count 316 10^3/cmm (130-400) 01/15/22 23:05 MPV 10.7 fL (7.4-10.4) H 01/15/22 23:05 Neut % (Auto) 84.1 % 01/15/22 23:05 Lymph % (Auto) 11.9 % 01/15/22 23:05 [place] % (Auto) 2.8 % 01/15/22 23:05 Eos % (Auto) 0.0 % 01/15/22 23:05 Baso % (Auto) 0.3 % 01/15/22 23:05 Neut # (Auto) 10.70 10^3/uL (1.8-7.7) H 01/15/22 23:05 Lymph # (Auto) 1.5 10^3/uL (0.8-4.8) 01/15/22 23:05 [place] # (Auto) 0.4 10^3/uL (0.2-0.9) 01/15/22 23:05 Eos # (Auto) 0.0 10^3/uL (0.0-0.8) 01/15/22 23:05 Baso # (Auto) 0.0 10^3/uL (0.0-0.1) 01/15/22 23:05 Nucleated RBC % (auto) 0 % 01/15/22 23:05 Nucleated RBCs # 0.0 /100WBC 01/15/22 23:05 Sodium 134 mmol/L (136-145) L 01/15/22 23:05 Potassium 4.3 mmol/L (3.5-5.1) 01/15/22 23:05 Chloride 104 mmol/L (98-107) 01/15/22 23:05 Carbon Dioxide 20 mmol/L (22-29) L 01/15/22 23:05 Anion Gap 14.3 (5-19) 01/15/22 23:05 BUN 12 mg/dL (6-20) 01/15/22 23:05 Creatinine 0.5 mg/dL (0.5-0.9) 01/15/22 23:05 GFR Calculation 146.9 mL/min (90-130) H 01/15/22 23:05 Glucose 134 mg/dL (65-115) H 01/15/22 23:05 Calculated Osmolality 280 mOsm/kg (285-295) L 01/15/22 23:05 Calcium 8.8 mg/dL (8.5-10.5) 01/15/22 23:05 Total Bilirubin 0.3 mg/dL (0.15-1.2) 01/15/22 23:05 AST 12 U/L (0-32) 01/15/22 23:05 ALT 19 U/L (0-33) 01/15/22 23:05 Alkaline Phosphatase 75 IU/L (35-105) 01/15/22 23:05 Total Protein 7.6 g/dL (6.6-8.7) 01/15/22 23:05 Albumin 4.2 g/dL (3.5-5.2) 01/15/22 23:05 Globulin 3.4 g/dL (1.3-4.6) 01/15/22 23:05 HCG, Qual Negative (Negative) 01/15/22 23:05 Monoscreen Negative (Negative) 01/15/22 23:05 Group A Strep Rapid Negative (Negative) 01/15/22 21:36 Discharge Plan Discharge Patient Disposition: Home Clinical Impression: Viral syndrome Condition: Stable Prescriptions: No Action Mirena 20 mcg/24 hours (6 yrs) 52 mg intrauterine device See Rx Instructions .ROUTE .COMPLEX 0RF Label Comments: Inserted January 2019 Rx Instructions: intrauterinely, use as directed cyclobenzaprine 5 mg tablet 5 mg PO TID PRN (Reason: muscle spasm) Qty: 20 0RF fluticasone propionate 50 mcg/actuation spray,suspension 1 spray intranasal BID Qty: 16 0RF Rx Instructions: administer into each nostril meclizine 12.5 mg tablet 12.5 mg PO QID PRN (Reason: dizziness) Qty: 30 0RF sulfamethoxazole-trimethoprim 800-160 mg tablet 1 tab PO BID Qty: 14 0RF Trintellix 10 mg tablet 10 mg PO DAILY Qty: 90 3RF clonazepam 0.5 mg tablet 0.5 mg PO BID PRN (Reason: anxiety) Qty: 60 0RF docusate sodium 100 mg Capsule 100 mg PO BID PRN (Reason: constipation) Qty: 30 0RF Discharge Orders: Discharge ED (Routine); Ordered 01/16/22 Ordered By: Ricky Wasserman Referrals: Payton Dennis FNP-C [Primary Care Provider] - Discharge Diet: Regular Discharge Activity: Increase activity as tolerated Activity Restrictions/Additional Instructions: Follow-up with medical provider as directed in the next 5 to 7 days for reevaluation. Continue taking all previously prescribed medications. Take [id number] Tylenol or Motrin for any fevers or pain. Return to the ER or your medical provider if condition worsens. Please read and understand discharge instructions. Thank you for choosing [facility] for your healthcare needs today. Please realize this is an emergency room and that we are providing you with a medical screening exam and this may not be complete and all inclusive of all the testing and or work up that you may need to determine your ailment or severity of your illness. It is very important that you follow up as instructed or that you return to the Emergency Department should you have concerns or if your condition changes or worsens in any way. Coding Level of Care Code ED [employer] for [employer] Exam Comprehensive
[2022-01-15] MEDS: ondansetron 2 mg/ML SDV 2 mL 4 MG IVP (22:46)
[2022-01-15] MEDS: sodium chloride 0.9% 1,000 ML 999 ML IV (22:46)
[2022-01-15] MEDS: ketorolac 30 mg/mL INJ IVP (22:46)
[2022-01-15 23:18] LABS: Basophils % 0.3 %; Hematocrit 38.2 % (37.0-47.0); Hemoglobin 13.4 g/dL (11.5-15.3); Lymphocytes # 1.5 10^3/uL (0.8-4.8); Lymphocytes % 11.9 %; Mean Corpuscular HGB Conc 35.1 g/dL (30.0-36.0); Mean Corpuscular Hemoglobin 29.4 pg (28.0-34.0); Mean Corpuscular Volume 83.8 fl (81-99); Mean Platelet Volume 10.7 fL (7.4-10.4); Monocytes # 0.4 10^3/uL (0.2-0.9); Monocytes % 2.8 %; Neutrophils % 84.1 %; Nucleated Red Blood Cells % 0 %; Platelet Count 316 10^3/cmm (130-400); Red Blood Count 4.56 10^6/uL (4.1-5.3); Red Cell Distribution Width 12.5 % (12.1-15.1); White Blood Count 12.7 10^3/uL (4.0-10.0)
[2022-01-15 23:32] LABS: HCG, Serum Qual Negative (Negative)
[2022-01-15 23:37] LABS: Monoscreen Negative (Negative)
[2022-01-15 23:40] LABS: Alanine Aminotransferase 19 U/L (0-33); Albumin Level 4.2 g/dL (3.5-5.2); Alkaline Phosphatase 75 IU/L (35-105); Anion Gap 14.3 (5-19); Aspartate Amino Transferase 12 U/L (0-32); Blood Urea Nitrogen 12 mg/dL (6-20); Calcium 8.8 mg/dL (8.5-10.5); Carbon Dioxide 20 mmol/L (22-29); Chloride 104 mmol/L (98-107); Globulin 3.4 g/dL (1.3-4.6); Glomerular Filtration Rate 146.9 mL/min (90-130); Glucose 134 mg/dL (65-115); Osmolality Calculated 280 mOsm/kg (285-295); Potassium 4.3 mmol/L (3.5-5.1); Sodium 134 mmol/L (136-145); Total Bilirubin 0.3 mg/dL (0.15-1.2); Total Protein 7.6 g/dL (6.6-8.7)
[2022-01-16] MEDS: orphenadrine 30 mg/mL Inj 2 mL 60 MG IVP (01:00)
== END 2022-01-16 01:53 | disposition home or self-care (01) ==
PROVIDERS: Emergency Provider Physician Assistant; PCP Nurse Practitioner Family
DX: B34.9 Viral infection, unspecified (principal)
CPT/HCPCS: 36415; 71045; 80053; 84703; 85025; 86308; 87040; 87081; 87880; 96374; 96375; 99284; J1885; J2360; J2405; J7030

== ENCOUNTER → 2022-02-23 10:11 | Outpatient (BNVA) | payer OTHER, SELFPAY | PROVIDERS: PCP Nurse Practitioner Family; Visit Provider Registered Nurse Neonatal Intensive Care | DX: M79.642 Pain in left hand (principal) | CPT/HCPCS: 73130 ==

== ENCOUNTER 2022-06-14 09:57 | Outpatient (CLI) | payer SELFPAY ==
[2022-06-14 11:26] LABS: HF Add Manual Diff No
[2022-06-14 11:37] LABS: Basophils % 0.5 %; Eosinophils # 0.3 10^3/uL (0.0-0.8); Eosinophils % 3.4 %; Hematocrit 42.4 % (37.0-47.0); Hemoglobin 14.4 g/dL (11.5-15.3); Lymphocytes # 2.9 10^3/uL (0.8-4.8); Lymphocytes % 39.9 %; Mean Corpuscular Hemoglobin 29.6 pg (28.0-34.0); Mean Corpuscular Volume 87.1 fl (81-99); Mean Platelet Volume 11.7 fL (7.4-10.4); Monocytes # 0.4 10^3/uL (0.2-0.9); Monocytes % 5.3 %; Neutrophils % 50.4 %; Nucleated Red Blood Cells % 0 %; Platelet Count 301 10^3/cmm (130-400); Red Blood Count 4.87 10^6/uL (4.1-5.3); Red Cell Distribution Width 13.2 % (12.1-15.1); White Blood Count 7.4 10^3/uL (4.0-10.0)
[2022-06-14 11:54] LABS: Estmated Average Glucose 88; Hemoglobin A1C 4.7 % (4.0-6.0)
[2022-06-14 12:13] LABS: Alanine Aminotransferase 28 U/L (0-33); Albumin Level 4.4 g/dL (3.5-5.2); Alkaline Phosphatase 65 U/L (35-105); Anion Gap 13.9 (5-19); Aspartate Amino Transferase 17 U/L (0-32); Blood Urea Nitrogen 15 mg/dL (6-20); Calcium 9.1 mg/dL (8.5-10.5); Carbon Dioxide 22 mmol/L (22-29); Chloride 104 mmol/L (98-107); Chol HDL Ratio 3.25 mg/dL (0.0-4.40); Cholesterol 130 mg/dL (0-200); Globulin 3.2 g/dL (1.3-4.6); Glomerular Filtration Rate 99.6 mL/min (90-130); Glucose 83 mg/dL (65-115); HDL Cholesterol 40 mg/dL (60-100); LDL Cholesterol Calculated 73 mg/dL (50-129); LDL HDL Ratio 1.83 RATIO (0.00-3.22); Osmolality Calculated 282 mOsm/kg (285-295); Potassium 3.9 mmol/L (3.5-5.1); Sodium 136 mmol/L (136-145); Total Bilirubin 0.5 mg/dL (0.15-1.2); Total Protein 7.6 g/dL (6.6-8.7); Triglycerides 84 mg/dL (0-150)
== END 2022-06-14 09:58 | disposition home or self-care (01) ==
PROVIDERS: PCP Family Medicine; Visit Provider Dermatology
DX: Z01.89 Encounter for other specified special examinations (principal)

== ENCOUNTER 2022-06-15 19:42 | Emergency (ER) | payer BC, SELFPAY ==
[2022-06-15 19:58] VITALS: BMI 39.9
[2022-06-15 20:01] VITALS: BP 129/82; PULSE 73; RESP 16; TEMP 36.4; O2SAT 99
[2022-06-15 20:33] LABS: Basophils % 0.3 %; Eosinophils # 0.1 10^3/uL (0.0-0.8); Eosinophils % 1.5 %; Hematocrit 43.6 % (37.0-47.0); Lymphocytes # 2.2 10^3/uL (0.8-4.8); Lymphocytes % 24.9 %; Mean Corpuscular HGB Conc 34.4 g/dL (30.0-36.0); Mean Corpuscular Hemoglobin 29.8 pg (28.0-34.0); Mean Corpuscular Volume 86.7 fl (81-99); Mean Platelet Volume 10.9 fL (7.4-10.4); Monocytes # 0.5 10^3/uL (0.2-0.9); Monocytes % 5.8 %; Neutrophils # 5.83 10^3/uL (1.8-7.7); Neutrophils % 66.8 %; Nucleated Red Blood Cells % 0 %; Platelet Count 308 10^3/cmm (130-400); Red Blood Count 5.03 10^6/uL (4.1-5.3); Red Cell Distribution Width 13.2 % (12.1-15.1); White Blood Count 8.7 10^3/uL (4.0-10.0)
[2022-06-15 20:52] LABS: Alanine Aminotransferase 28 U/L (0-33); Albumin Level 4.4 g/dL (3.5-5.2); Alkaline Phosphatase 64 U/L (35-105); Anion Gap 13.7 (5-19); Aspartate Amino Transferase 18 U/L (0-32); Blood Urea Nitrogen 12 mg/dL (6-20); Calcium 9.5 mg/dL (8.5-10.5); Carbon Dioxide 23 mmol/L (22-29); Chloride 102 mmol/L (98-107); Globulin 3.7 g/dL (1.3-4.6); Glomerular Filtration Rate 99.6 mL/min (90-130); Glucose 101 mg/dL (65-115); Lipase 49 U/L (13-60); Osmolality Calculated 280 mOsm/kg (285-295); Potassium 3.7 mmol/L (3.5-5.1); Sodium 135 mmol/L (136-145); Total Bilirubin 0.5 mg/dL (0.15-1.2); Total Protein 8.1 g/dL (6.6-8.7)
[2022-06-15 20:57] LABS: HCG, Serum Qual Negative (Negative)
--- NOTE | 2022-06-15 21:15 | CTR_ITS ---
PROCEDURE INFORMATION: Exam: CT Abdomen And Pelvis Without Contrast Exam date and time: 06/15/2022 9:27 PM Age: 26 years old Clinical indication: Nausea and vomiting; Abdominal pain; Localized; Prior surgery; Surgery type: Gb. Endometrial ablation. Iud. Patient HX: C/O upper abd pain with n/v. TECHNIQUE: Imaging protocol: Computed tomography of the abdomen and pelvis without contrast. Radiation optimization: All CT scans at this facility use at least one of these dose optimization techniques: automated exposure control; mA and/or kV adjustment per patient size (includes targeted exams where dose is matched to clinical indication); or iterative reconstruction. COMPARISON: CT abdomen pelvis w con* [id number] 09/25/2021 8:22 AM RADIATION DOSE METRICS: Total DLP (mGy-cm): 1092.93 FINDINGS: Liver: Normal. No mass. Gallbladder and bile ducts: Cholecystectomy. Pancreas: Normal. No ductal dilation. Spleen: Spleen enlarged at 13.7 cm. Adrenal glands: Normal. No mass. Kidneys and ureters: Left kidney upper pole punctate nonobstructing calyceal stone. Stomach and bowel: Unremarkable. No obstruction. No mucosal thickening. Appendix: No evidence of appendicitis. Intraperitoneal space: Unremarkable. No free air. No significant fluid collection. Vasculature: Unremarkable. No abdominal aortic aneurysm. Lymph nodes: Unremarkable. No enlarged lymph nodes. Urinary bladder: Unremarkable as visualized. Reproductive: IUD in the uterine cavity. Bones/joints: Unremarkable. No acute fracture. Soft tissues: Unremarkable. CT/CT kidney stone [id number] IMPRESSION: 1. Negative for acute inflammatory process in the abdomen or pelvis. 2. Cholecystectomy. 3. Spleen enlarged at 13.7 cm. 4. Left kidney upper pole punctate nonobstructing calyceal stone. 5. IUD in the uterine cavity.
--- NOTE | 2022-06-15 21:20 | W.ED.ABDPA2 ---
HPI - Abdominal Pain General: Chief Complaint: Abdominal Pain Stated Complaint: abdomen pain Time Seen by Provider: 06/15/22 20:33 Source: patient Mode of arrival: ambulatory Limitations: no limitations History of Present Illness: 26-year-old female states she been having nausea vomiting along with severe abdominal pain tonight states she got severe cramping in her upper abdomen she rates an 8 out of 10. She has had a cholecystectomy in the past. Denies any radiation of her pain states is worse when she is vomiting. Denies any fevers. She has had some diarrhea as well. Associated Symptoms: Reports nausea and vomiting; Denies chills, dysuria and fever(s) Related Data: Date of Last Menstrual Period: 04/11/21 Review of Systems Const: Denies: fever(s), chills, body aches or change in appetite Eyes: Denies: blurry vision or eye discomfort ENMT: Denies: throat pain or dental pain Card: Denies: chest pain Resp: Denies: dyspnea GI: Reports: abdominal pain, nausea and vomiting : Denies: dysuria Musc: Denies: neck pain or back pain Skin/Breast: Denies: rash Neuro: Denies: headache(s) Psych: Denies: depression Devin/Lymph: Denies: easy bruising All/Imm: Denies: urticaria PFSH ED PFSH: Medical History Allergic rhinitis due to allergen Bronchitis Depression with anxiety Diagnosed at the age of 17 and has been on medication and therapy. Endometriosis Diagnosed at the age of 15 and had a laparoscopy at [facility] in [place] No pertinent past medical history Denies diabetes, asthma, hypertension, seizures, DVT/PE PCP: Dr. Franco Surgical History History of vaginal surgery 04/29/2021--excision of 4 cm cyst from posterior vaginal wall performed by Dr. Burch at [facility] [place] Pathology showed benign cyst without malignancy S/P laparoscopic cholecystectomy In 2017 Status post laparoscopy 2014--diagnostic laparoscopy with removal and ablation of endometriosis performed by Dr. Chaney in [facility]--these records have been requested and received and scanned. -----> 03/17/2015--multiple implants of endometriosis 2 on the anterior bladder flap, 5 on the left posteriorly, uterosacral ligaments bilaterally and all of these lesions were vaporized with laser. 2 implants on the left side overlying ureter which were not vaporized Family History Grandfather Colon cancer maternal, daignosed at age 70 Diabetes maternal Heart disease maternal Hyperlipidemia maternal Mother Hypertension Endometriosis Sister Endometriosis Denies family history of Ovarian cancer Breast cancer Uterine cancer Thyroid condition Stroke Social History Smoking and tobacco status: never smoked Female Reproductive History: Date of last menstrual period: 04/11/21 Physical Exam Const: COMMON NORMALS: no acute distress, patient oriented x3 and healthy appearing HENMT: COMMON NORMALS: normocephalic and atraumatic HEAD & SCALP: normocephalic and atraumatic Eye: COMMON NORMALS: Equal, round and reactive pupils present and EOMs intact bilaterally PUPIL: Yes Equal, round and reactive pupils present Neck/C-Spine: COMMON NORMALS: full ROM and supple Chest: COMMONS NORMALS: normal inspection of the chest and normal palpation of entire chest wall Resp: COMMON NORMALS: normal respiratory effort, No retractions, No use of accessory muscles and clear to auscultation bilaterally AUSCULTATION: clear to auscultation bilaterally Cardio: COMMON NORMALS: regular rate, regular rhythm and No murmurs present (Cardio) RATE: regular rate RHYTHM: regular rhythm GI: COMMON NORMALS: Normal to inspection, nondistended, normoactive bowel sounds present, Soft to palpation, non-tender and no masses PALPATION: Yes Soft to palpation Extremity: COMMON NORMALS: normal to inspection and full ROM Neuro: COMMON NORMALS: patient oriented x3, moves all extremities and no focal motor deficits Psych: COMMON NORMALS: mental status grossly normal, Normal thought process present and cooperative THOUGHT PROCESS: Normal thought process present Skin: COMMON NORMALS: no rashes or lesions noted and no wounds GENERAL SKIN EXAM: no rashes or lesions noted Course Vital Signs: Vital signs: Vital Signs Temperature 97.6 F 06/15/22 20:01 Pulse Rate 77 06/15/22 22:49 Respiratory Rate 17 06/15/22 22:49 Blood Pressure 122/90 06/15/22 22:49 Pulse Oximetry 96 12/14/22 22:49 Oxygen Delivery Me thod 12/14/22 22:49 MDM - Abdominal Pain Medical Decision Making Patient presents here with vomiting along with abdominal pain she feels improved after meds CT scan blood works normal is likely viral in origin she is stable for discharge we will prescribe her Reglan she is to follow-up with her PCP and return if worsening. Lab Data 06/15/22 20:24 06/15/22 20:24 Labs/Radiology: Radiology Impressions Abdomen/Pelvis CT 06/15/22 21:15 IMPRESSION: 1. Negative for acute inflammatory process in the abdomen or pelvis. 2. Cholecystectomy. 3. Spleen enlarged at 13.7 cm. 4. Left kidney upper pole punctate nonobstructing calyceal stone. 5. IUD in the uterine cavity. Laboratory Results WBC 8.7 10^3/uL (4.0-10.0) 06/15/22 20:24 RBC 5.03 10^6/uL (4.1-5.3) 06/15/22 20:24 Hgb 15.0 g/dL (11.5-15.3) 06/15/22 20:24 Hct 43.6 % (37.0-47.0) 06/15/22 20:24 MCV 86.7 fl (81-99) 06/15/22 20:24 MCH 29.8 pg (28.0-34.0) 06/15/22 20:24 MCHC 34.4 g/dL (30.0-36.0) 06/15/22 20:24 RDW 13.2 % (12.1-15.1) 06/15/22 20:24 Plt Count 308 10^3/cmm (130-400) 06/15/22 20:24 MPV 10.9 fL (7.4-10.4) H 06/15/22 20:24 Neut % (Auto) 66.8 % 06/15/22 20:24 Lymph % (Auto) 24.9 % 06/15/22 20:24 [place] % (Auto) 5.8 % 06/15/22 20:24 Eos % (Auto) 1.5 % 06/15/22 20:24 Baso % (Auto) 0.3 % 06/15/22 20:24 Neut # (Auto) 5.83 10^3/uL (1.8-7.7) 06/15/22 20:24 Lymph # (Auto) 2.2 10^3/uL (0.8-4.8) 06/15/22 20:24 [place] # (Auto) 0.5 10^3/uL (0.2-0.9) 06/15/22 20:24 Eos # (Auto) 0.1 10^3/uL (0.0-0.8) 06/15/22 20:24 Baso # (Auto) 0.0 10^3/uL (0.0-0.1) 06/15/22 20:24 Nucleated RBC % (auto) 0 % 06/15/22 20:24 Nucleated RBCs # 0.0 /100WBC 06/15/22 20:24 Sodium 135 mmol/L (136-145) L 06/15/22 20:24 Potassium 3.7 mmol/L (3.5-5.1) 06/15/22 20:24 Chloride 102 mmol/L (98-107) 06/15/22 20:24 Carbon Dioxide 23 mmol/L (22-29) 06/15/22 20:24 Anion Gap 13.7 (5-19) 06/15/22 20:24 BUN 12 mg/dL (6-20) 06/15/22 20:24 Creatinine 0.7 mg/dL (0.5-0.9) 06/15/22 20:24 GFR Calculation 99.6 mL/min (90-130) 06/15/22 20:24 Glucose 101 mg/dL (65-115) 06/15/22 20:24 Calculated Osmolality 280 mOsm/kg (285-295) L 06/15/22 20:24 Calcium 9.5 mg/dL (8.5-10.5) 06/15/22 20:24 Total Bilirubin 0.5 mg/dL (0.15-1.2) 06/15/22 20:24 AST 18 U/L (0-32) 06/15/22 20:24 ALT 28 U/L (0-33) 06/15/22 20:24 Alkaline Phosphatase 64 U/L (35-105) 06/15/22 20:24 Total Protein 8.1 g/dL (6.6-8.7) 06/15/22 20:24 Albumin 4.4 g/dL (3.5-5.2) 06/15/22 20:24 Globulin 3.7 g/dL (1.3-4.6) 06/15/22 20:24 Lipase 49 U/L (13-60) 06/15/22 20:24 HCG, Qual Negative (Negative) 06/15/22 20:24 Urine Color Yellow (Yellow) 06/15/22 21:27 Urine Appearance Clear (CLEAR) 06/15/22 21: Urine pH 5 (5-7) 06/15/22 21:27 Ur Specific [place] 1.025 (1.005-1.030) 06/15/22 21: Urine Protein Neg (Negative) 06/15/22 21: Urine Glucose (UA) Norm (Normal) 06/15/22 21: Urine Ketones 1+ (Negative) H 06/15/22 21: Urine Blood 2+ (Negative) H 06/15/22 21:27 Urine Nitrate Negative (Negative) 06/15/22 21: Urine Bilirubin Neg (Negative) 06/15/22 21:27 Urine Urobilinogen Norm mg/dL (Negative) 06/15/22 21:27 Ur Leukocyte Esterase Negative (Negative) 06/15/22 21:27 Urine RBC 5-10 /hpf (0-2) H 06/15/22 21:27 Urine WBC None /hpf (0-5) 06/15/22 21:27 Ur Squamous Epith Cells 0-4 /hpf (0-5) H 06/15/22 21:27 Amorphous Sediment 1+ /hpf 06/15/22 21:27 Urine Bacteria Trace /hpf (NONE) 06/15/22 21:27 Urine Mucus 2+ /hpf 06/15/22 21:27 Discharge Plan Discharge Patient Disposition: Home Clinical Impression: Abdominal pain, Vomiting Condition: Stable Prescriptions: New Reglan 10 mg tablet 10 mg PO Q6H PRN (Reason: nausea and vomiting) Qty: 20 0RF No Action Mirena 20 mcg/24 hours (6 yrs) 52 mg intrauterine device See Rx Instructions .ROUTE .COMPLEX Label Comments: Inserted January 2019 Rx Instructions: intrauterinely, use as directed Trintellix 10 mg tablet 10 mg PO DAILY Qty: 90 3RF clonazepam 0.5 mg tablet 0.5 mg PO BID PRN (Reason: anxiety) Qty: 60 0RF docusate sodium 100 mg Capsule 100 mg PO BID PRN (Reason: constipation) Qty: 30 0RF Discharge Orders: Discharge ED (Routine); Ordered 06/15/22 Ordered By: Masoud Ochoa Referrals: Truman Lizarraga MD [Primary Care Provider] - 1-3 days Discharge Diet: Advance as tolerated Discharge Activity: Resume usual activity Patient Instructions: Acute Nausea and Vomiting (ED), Abdominal Pain (ED) Coding Level of Care Code ED Horser Up for Chg Fwd Exam Comprehensive
[2022-06-15 21:43] LABS: Add Urine Microscopic? YES; Bilirubin Urine Neg (Negative); Blood Urine 2+ (Negative); Glucose Urine UA Norm (Normal); Ketones Urine 1+ (Negative); Leukocyte Esterase Urine Negative (Negative); Nitrate Urine Negative (Negative); Protein Urine Neg (Negative); Specific Gravity, Urine 1.025 (1.005-1.030); Urine Appearance Clear (CLEAR); Urine Color Yellow (Yellow); Urobilinogen Urine Norm (Negative); pH Urine 5 (5-7)
[2022-06-15 21:44] LABS: Add Urine Culture? No; Amorphous Sediment Urine 1+ /hpf; Bacteria Urine TRACE /hpf; Mucus Urine 2+ /hpf; Squamous Epithelial Cell Urine 0-4 /hpf (0-5)
[2022-06-15] MEDS: ondansetron 2 mg/ML SDV 2 mL 4 MG IVP (21:47)
[2022-06-15 21:48] VITALS: RESP 15
[2022-06-15] MEDS: morphine 4 mg/mL SDV 1 mL IVP (21:48)
[2022-06-15] MEDS: diphenhydrAMINE 50 mg/mL SDV 1mL IVP (22:18)
[2022-06-15] MEDS: metoclopramide 5 mg/mL SDV 2 mL 10 MG IVP (22:18)
[2022-06-15 22:49] VITALS: BP 122/90; PULSE 77; RESP 17; O2SAT 96
== END 2022-06-15 22:51 | disposition home or self-care (01) ==
PROVIDERS: Emergency Provider Emergency Medicine; PCP Family Medicine
DX: R10.9 Unspecified abdominal pain (principal); R11.11 Vomiting without nausea
CPT/HCPCS: 74176; 80053; 81001; 83690; 84703; 85025; 96374; 96375; 99285; J1200; J2270; J2405; J2765

== ENCOUNTER → 2022-08-15 11:32 | Day surgery (SDC) | payer BC, SELFPAY ==
[2022-08-15 11:45] VITALS: BP 114/81; PULSE 97; RESP 18; TEMP 36.2; O2SAT 97; BMI 39.1
[2022-08-15] MEDS: sodium chloride 0.9% 1,000 ML 999 ML IV (12:05)
== END ==
PROVIDERS: PCP Family Medicine; Visit Provider Anesthesiology
DX: E86.0 Dehydration (principal)
CPT/HCPCS: 96360; 96374; 96375; J7030

== ENCOUNTER 2022-11-18 07:51 | Day surgery (SDC) | payer BC, SELFPAY ==
[2022-11-16 09:17] VITALS: BMI 39.6
[2022-11-18 08:19] VITALS: BP 138/83; PULSE 78; RESP 16; TEMP 36.1; O2SAT 98
[2022-11-18] MEDS: sodium chloride 0.9% 1,000 ML 30 ML IV (08:23)
--- NOTE | 2022-11-18 08:36 | P.ANESASSM_ITS ---
Pre-Anesthetic Assessment Height/Weight: Height 1.65 m Weight 107.955 kg Temp Pulse Resp BP Pulse Ox O2 Del Method 97.0 F L 78 16 138/83 98 Room Air 11/18/22 08:19 11/18/22 08:19 11/18/22 08:19 11/18/22 08:19 11/18/22 08:19 11/18/22 08:19 Preop Diagnosis: GERD reflux disease, constipation, hematochezia Operation Date: 11/18/22 10:00 Proposed Procedures p 83052 EGD, [address] colon K21.9,K59.00, K92.1 melena(Not Applicable) - DO yesenia Huff Colonoscopy(Not Applicable) - Jac Callaway DO Familial anesthetic complications: PONV Was Beta Jose Alberto taken within 24 hours: N/A Was Clonidine taken within 24 hours: N/A Last intake: Intake Last Liquid Date 11/17/22 Last Liquid Time 19:30 Last Solid Date 11/16/22 Last Solid Time 15:30 Social No alcohol and No tobacco Exam alert, oriented x 3, clear to auscultation bilaterally and regular rate & rhythm Airway Submandibular: within normal limits Cervical ROM: within normal limits Mallampati: Class I Dentition: full Pulmonary None reported CV/HEM None reported None reported Hepatic None reported GI Gastroesophageal Reflux Disease Metabolic Morbid Obesity and None reported Musc/skel None reported Neuropsych Anxiety and Depression Anesthetic Plan ASA status: 1 Anesthesia: MAC Medications/Allergies Home Medications Medication Instructions Recorded Confirmed Last Taken Type levonorgestrel 21 mcg/24 hours (8 See Rx Instructions .Route .COMPLEX 09/09/20 11/18/22 11/18/22 History yrs) 52 mg intrauterine device (Mirena) docusate sodium 100 mg capsule 100 mg PO BID PRN constipation #30 04/29/21 11/18/22 11/18/22 Rx caps vortioxetine 10 mg tablet 10 mg PO DAILY #90 tabs 12/13/21 11/18/22 11/18/22 Rx (Trintellix) clonazepam 0.5 mg tablet 0.5 mg PO BID PRN anxiety #60 tabs 12/27/21 11/18/22 11/18/22 Rx pantoprazole 40 mg tablet,delayed 40 mg PO BID 11/02/22 11/18/22 11/18/22 History release (Protonix) polyethylene glycol 3350 17 4 g PO BID 11/02/22 11/18/22 11/18/22 History gram/dose oral powder (Miralax) Allergies Allergy/AdvReac Type Severity Reaction Status Date / Time Penicillins Allergy XRLF-Sfcu-djlya Verified 11/18/22 08:09 took Keflex Current Medications Generic Name Dose Route Start Last Admin Trade Name Freq PRN Reason Stop Dose Admin Sodium Chloride 1,000 mls @ 30 mls/hr 11/18/22 08:15 11/18/22 08:23 Sodium Chloride 0.9% IV 11/19/22 08:14 30 mls/hr .Q24H LIAM Administration PFSH Anesthesia Medical History Allergic rhinitis due to allergen Bronchitis Depression with anxiety Diagnosed at the age of 17 and has been on medication and therapy. Endometriosis Diagnosed at the age of 15 and had a laparoscopy at [facility] in [place] No pertinent past medical history Denies diabetes, asthma, hypertension, seizures, DVT/PE PCP: Dr. Franco Surgical History History of vaginal surgery 04/29/2021--excision of 4 cm cyst from posterior vaginal wall performed by Dr. Burch [place] [facility] [place] Pathology showed benign cyst without malignancy Hx of tubal ligation 10/28/22 S/P laparoscopic cholecystectomy In 2017 Status post laparoscopy 2014--diagnostic laparoscopy with removal and ablation of endometriosis performed by Dr. Chaney in [facility]--these records have been requested and received and scanned. -----> 03/17/2015--multiple implants of endometriosis 2 on the anterior bladder flap, 5 on the left posteriorly, uterosacral ligaments bilaterally and all of these lesions were vaporized with laser. 2 implants on the left side overlying ureter which were not vaporized Family History Grandfather Colon cancer maternal, daignosed at age 70 Diabetes maternal Heart disease maternal Hyperlipidemia maternal Mother Hypertension Endometriosis Sister Endometriosis Denies family history of Ovarian cancer Breast cancer Uterine cancer Thyroid condition Stroke Social History Smoking and tobacco status: never smoked Substance/Drug Use: never Female Reproductive History Date of last menstrual period: 10/22/22 Data Anesthesia Cardiac Studies: No Data to Display
[2022-11-18 08:50] LABS: OR HCG Qualitative Urine Negative (Negative)
--- NOTE | 2022-11-18 09:17 | W.PM.OPSUD ---
Surgery/Procedure H&P Update DATE OF PROCEDURE: November 18, 2022 DATE H&P PERFORMED: 11/02/22 H&P UPDATE INFORMATION: I have reviewed H&P completed within last 30 days, I have examined patient prior to procedure and No changes to prior documentation PREOP DIAGNOSIS: GERD reflux disease, constipation, hematochezia PLANNED PROCEDURE: Operation Date: 11/18/22 10:00 Proposed Procedures p 45335 EGD, 44169 colon K21.9,K59.00, K92.1 melena(Not Applicable) - DO yesenia Huff Colonoscopy(Not Applicable) - Jac Callaway DO
[2022-11-18 10:22] VITALS: BP 134/84; PULSE 80; RESP 16; TEMP 36.2; O2SAT 97
--- NOTE | 2022-11-18 16:08 | ANE.PACU2 ---
Inpatient post-anesthesia follow up: Airway intact: Yes Vital signs: Temperature 97.2 F Pulse Rate 80 Respiratory Rate 16 Blood Pressure 134/84 Pulse Oximetry 97 Oxygen Delivery Me thod Room Air Oxygen Flow Rate Fraction of Inspir ed Oxygen Hydration adequate: Yes Nausea and vomiting: No Pain level: 1 Mental status: Baseline
== END 2022-11-18 10:45 | disposition home or self-care (01) ==
PROVIDERS: Anesthesiology; PCP Family Medicine; Visit Provider Surgery
PROC: 0DJ08ZZ Inspection of Upper Intestinal Tract, Via Natural or Artificial Opening Endoscopic (ICD-10-PCS; CPT 43235; principal; 2022-11-18 10:00)
PROC: 0DJD8ZZ Inspection of Lower Intestinal Tract, Via Natural or Artificial Opening Endoscopic (ICD-10-PCS; CPT 45378; 2022-11-18 10:00)
DX: K21.9 Gastro-esophageal reflux disease without esophagitis (principal); K59.09 Other constipation; R10.9 Unspecified abdominal pain; K63.5 Polyp of colon; E66.01 Morbid (severe) obesity due to excess calories; Z68.39 Body mass index [BMI] 39.0-39.9, adult; F41.9 Anxiety disorder, unspecified; F32.A Depression, unspecified; K29.50 Unspecified chronic gastritis without bleeding; Z80.0 Family history of malignant neoplasm of digestive organs; K92.1 Melena; K44.9 Diaphragmatic hernia without obstruction or gangrene
CPT/HCPCS: 43239; 45378; 45385; 84703; 88305; 88342; J2704; J7030

== ENCOUNTER → 2023-11-14 19:00 | Outpatient (BNVA) | payer BC, SELFPAY | PROVIDERS: Visit Provider Emergency Medicine | DX: R30.0 Dysuria (principal) | CPT/HCPCS: 81000; 87086 ==

== ENCOUNTER → 2024-02-23 15:41 | Outpatient (BNVA) | payer BC, SELFPAY | PROVIDERS: Visit Provider Nurse Practitioner Women's Health | DX: Z12.4 Encounter for screening for malignant neoplasm of cervix (principal) | CPT/HCPCS: 87624 ==

== ENCOUNTER 2024-04-23 13:39 | Emergency (ER) | payer BC, SELFPAY ==
[2024-04-23 13:46] VITALS: BP 124/87; PULSE 91; RESP 16; TEMP 36.7; O2SAT 100
[2024-04-23 14:56] LABS: Basophils # 0.1 10^3/uL (0.0-0.1); Eosinophils # 0.5 10^3/uL (0.0-0.8); Eosinophils % 5.4 %; Hematocrit 46.4 % (36-47); Lymphocytes # 2.5 10^3/uL (0.8-4.8); Mean Corpuscular HGB Conc 34.5 g/dL (30-55); Mean Corpuscular Hemoglobin 29.6 pg (27-33); Mean Corpuscular Volume 85.8 fl (85-98); Mean Platelet Volume 10.7 fL (7.4-10.4); Monocytes # 0.5 10^3/uL (0.2-0.9); Monocytes % 5.8 %; Neutrophils # 5.18 10^3/uL (1.8-7.7); Neutrophils % 57.5 %; Nucleated Red Blood Cells % 0 %; Platelet Count 379 10^3/cmm (157-399); Red Blood Count 5.41 10^6/uL (3.85-5.65); White Blood Count 9.01 10^3/uL (3.29-11.43)
[2024-04-23 15:15] LABS: Alanine Aminotransferase 84 U/L (0-33); Albumin Level 4.5 g/dL (3.5-5.2); Alkaline Phosphatase 76 U/L (35-105); Anion Gap 22.4 (5-19); Aspartate Amino Transferase 42 U/L (0-32); Blood Urea Nitrogen 7 mg/dL (6-20); C Reactive Protein 17.5 mg/L (0.0-4.9); Calcium 8.9 mg/dL (8.5-10.5); Carbon Dioxide 18 mmol/L (22-29); Chloride 100 mmol/L (98-107); Globulin 3.7 g/dL (1.3-4.6); Glomerular Filtration Rate 117.4 mL/min (90-130); Glucose 85 mg/dL (65-115); Lipase 266 U/L (13-60); Osmolality Calculated 281 mOsm/kg (285-295); Potassium 3.4 mmol/L (3.5-5.1); Sodium 137 mmol/L (136-145); Total Bilirubin 0.5 mg/dL (0.15-1.2); Total Protein 8.2 g/dL (6.6-8.7)
--- NOTE | 2024-04-23 15:15 | ED_ITS ---
Documented by User: Son Man DO 04/24/24 05:50 HPI - Chest Pain 2 General: Chief Complaint: Chest Pain Stated Complaint: CP SOB Time Seen by Provider: 04/23/24 14:02 History of Present Illness: 28-year-old female with the emergency ro om complaining abdominal pain and chest pain with shortness of breath. Patient had a scopic hernia repair and Ofelia-en-Y bypass 1 week ago. She is having epigastric discomfort radiating up into her chest shortness of breath with activity. She is try to remain active since the surgery. No calf pain or discomfort. She has not had any fever sweats or chills dysuria urgency or frequency pain is worse with deep inspiration Associated symptoms: Reports abdominal pain, dyspnea and nausea; Deny fever(s) or vomiting Related Data Home Medications Medication Instructions Recorded Confirmed levonorgestrel 21 mcg/24 hr (up to See Rx Instructions .Route .COMPLEX 09/09/20 04/23/24 8 years) 52 mg intrauterine device (Mirena) hydroxyzine HCl 25 mg tablet mg PO 11/14/23 04/23/24 vortioxetine 20 mg tablet mg PO 11/14/23 04/23/24 (Trintellix) Previous Rx's Medication Instructions Recorded docusate sodium 100 mg capsule 100 mg PO BID PRN constipation #30 04/29/21 caps clonazepam 0.5 mg tablet 0.5 mg PO BID PRN anxiety #60 tabs 12/27/21 tramadol 50 mg tablet 50 mg PO Q8H PRN pain #14 tabs 04/23/24 Allergies Allergy/AdvReac Type Severity Reaction Status Date / Time ciprofloxacin [From Cipro] Allergy Intermediate ADR-Nausea Verified 04/23/24 08:52 Penicillins Allergy SUNP-Qinl-kpxoe Verified 04/23/24 08:52 took Keflex Review of Systems 2 Const: Denies: fever(s) or chills Card: Denies: chest pain Resp: Reports: dyspnea GI: Reports: abdominal pain and nausea; Denies: vomiting : Denies: dysuria, urinary frequency or urinary urgency Musc: Denies: neck pain or back pain Skin/Breast: Denies: rash PFSH ED 2 PFSH: Medical History Endometriosis Diagnosed at the age of 15 and had a laparoscopy at [facility] in [place] Depression with anxiety Diagnosed at the age of 17 and has been on medication and therapy. No pertinent past medical history Denies diabetes, asthma, hypertension, seizures, DVT/PE PCP: Dr. Franco Surgical History Hx of tubal ligation (~10/28/22) Exploratory laparotomy did not identify endometriosis; performed by Dr. Arboleda at [place] History of vaginal surgery 04/29/2021--excision of 4 cm cyst from posterior vaginal wall performed [place] Dr. Burch [place] [facility] [place]ology showed benign cyst without malignancy S/P laparoscopic cholecystectomy In 2017 Status post laparoscopy 2014--diagnostic laparoscopy with removal and ablation of endometriosis performed by Dr. Chaney in [facility]--these records have been requested and received and scanned. -----> 03/17/2015--multiple implants of endometriosis 2 on the anterior bladder flap, 5 on the left posteriorly, uterosacral ligaments bilaterally and all of these lesions were vaporized with laser. 2 implants on the left side overlying ureter which were not vaporized Family History Grandfather Colon cancer maternal, daignosed at age 70 Diabetes maternal Heart disease maternal Hyperlipidemia maternal Mother Hypertension Endometriosis Sister Endometriosis Denies family history of Ovarian cancer Breast cancer Uterine cancer Thyroid disease Stroke Social History Smoking and tobacco/nicotine status: never used tobacco/nicotine Physical Exam 2 Const: GENERAL APPEARANCE: cooperative ORIENTATION/CONSCIOUSNESS: Yes awake, Yes oriented to person, Yes oriented to place and Yes oriented to time HENMT: COMMON NORMALS: normocephalic, atraumatic and hearing grossly normal bilaterally HEAD & SCALP: normocephalic and atraumatic Resp: COMMON NORMALS: normal respiratory effort, No retractions, No use of accessory muscles and clear to auscultation bilaterally AUSCULTATION: clear to auscultation bilaterally Cardio: COMMON NORMALS: regular rate, regular rhythm and No murmurs present (Cardio) RATE: regular rate RHYTHM: regular rhythm GI: COMMON NORMALS: No hepatosplenomegaly present AUSCULTATION: Yes normoactive bowel sounds PALPATION: Yes Tenderness to palpation present (GI) (Epigastric), No Guarding due to palpation present (GI) and Yes No hepatosplenomegaly present Extremity: COMMON NORMALS: normal to inspection, capillary refill normal, no clubbing, cyanosis or edema, no calf tenderness and no pedal edema Neuro: SENSORIUM/ORIENTATION: Yes oriented to person, Yes oriented to place and Yes oriented to time Skin: COMMON NORMALS: no rashes or lesions noted GENERAL SKIN EXAM: no rashes or lesions noted Course 2 Vital Signs: Vital signs: Vital Signs Temperature 98.1 F 04/23/24 13:46 Pulse Rate 87 04/23/24 20:06 Respiratory Rate 15 04/23/24 20:06 Blood Pressure 128/89 04/23/24 20:06 Pulse Oximetry 99 04/23/24 20:06 Oxygen Delivery Me thod Room Air 04/23/24 19:31 MDM - Chest Pain Medical Decision Making Care signed out to Dr. Simms at change of shift. See final notes for diagnosis and disposition. Care transferred to myself at shift change, lab work was reviewed as well as chest x-ray and CT scan of the abdomen pelvis, patient was feeling somewhat better after the morphine, patient says hydrocodone gives her the jitters. We tried tramadol here in ER which seemed to work decent. Patient already has an appointment with her surgeon tomorrow at 1 PM in [place]. We will give her her results today on the disc discharge her and have her follow-up with him. Patient is agreeable to this. Lab Data 04/23/24 14:25 04/23/24 14:25 Radiology Impressions Chest X-Ray 04/23/24 15:32 IMPRESSION: 1. No acute cardiopulmonary finding. Chest/Abdomen CTA 04/23/24 15:33 IMPRESSION: 1. No definite evidence of pulmonary emboli. 2. Scattered areas of air trapping can be seen with chronic small airways disease. 3. Status post cholecystectomy. 4. Status post Ofelai-en-Y gastric bypass. Small air and fluid in the excluded stomach could represent suture line dehiscence. This could be further assessed with barium swallow study if warranted. COMMENTS: Consistent with the [employer]'s Incidental Findings Committee white paper (J Am Penny Radiol 2018): Any incidental renal lesion less than 1 cm or classified as too small to characterize, or any incidental cystic renal lesion characterized as simple-appearing, is likely benign. No follow-up imaging is recommended for these lesions per consensus recommendations based on imaging criteria. Laboratory Results WBC 9.01 10^3/uL (3.29-11.43) 04/23/24 14: RBC 5.41 10^6/uL (3.85-5.65) 04/23/24 14:25 Hgb 16.00 g/dL (11.27-16.99) 04/23/24 14:25 Hct 46.4 % (36-47) 04/23/24 14:25 MCV 85.8 fl (85-98) 04/23/24 14:25 MCH 29.6 pg (27-33) 04/23/24 14: MCHC 34.5 g/dL (30-55) 04/23/24 14:25 RDW 13.0 % (12.1-15.1) 04/23/24 14:25 Plt Count 379 10^3/cmm (157-399) 04/23/24 14:25 MPV 10.7 fL (7.4-10.4) H 04/23/24 14:25 Neut % (Auto) 57.5 % 04/23/24 14:25 Lymph % (Auto) 28.0 % 04/23/24 14:25 [place] % (Auto) 5.8 % 04/23/24 14:25 Eos % (Auto) 5.4 % 04/23/24 14:25 Baso % (Auto) 1.0 % 04/23/24 14:25 Neut # (Auto) 5.18 10^3/uL (1.8-7.7) 04/23/24 14:25 Lymph # (Auto) 2.5 10^3/uL (0.8-4.8) 04/23/24 14:25 [place] # (Auto) 0.5 10^3/uL (0.2-0.9) 04/23/24 14:25 Eos # (Auto) 0.5 10^3/uL (0.0-0.8) 04/23/24 14:25 Baso # (Auto) 0.1 10^3/uL (0.0-0.1) 04/23/24 14:25 Nucleated RBC % (auto) 0 % 04/23/24 14:25 Nucleated RBCs # 0.0 /100WBC 04/23/24 14:25 Sodium 137 mmol/L (136-145) 04/23/24 14:25 Potassium 3.4 mmol/L (3.5-5.1) L 04/23/24 14:25 Chloride 100 mmol/L (98-107) 04/23/24 14:25 Carbon Dioxide 18 mmol/L (22-29) L 04/23/24 14:25 Anion Gap 22.4 (5-19) H 04/23/24 14:25 BUN 7 mg/dL (6-20) 04/23/24 14:25 Creatinine 0.6 mg/dL (0.5-0.9) 04/23/24 14:25 GFR Calculation 117.4 mL/min (90-130) 04/23/24 14:25 Glucose 85 mg/dL (65-115) 04/23/24 14:25 Calculated Osmolality 281 mOsm/kg (285-295) L 04/23/24 14:25 Lactic Acid 1.1 mmol/L (0.5-2.2) 04/23/24 14:25 Calcium 8.9 mg/dL (8.5-10.5) 04/23/24 14:25 Total Bilirubin 0.5 mg/dL (0.15-1.2) 04/23/24 14:25 AST 42 U/L (0-32) H 04/23/24 14:25 ALT 84 U/L (0-33) H 04/23/24 14:25 Alkaline Phosphatase 76 U/L (35-105) 04/23/24 14:25 C-Reactive Protein 17.5 mg/L (0.0-4.9) H 04/23/24 14:25 Total Protein 8.2 g/dL (6.6-8.7) 04/23/24 14:25 Albumin 4.5 g/dL (3.5-5.2) 04/23/24 14:25 Globulin 3.7 g/dL (1.3-4.6) 04/23/24 14:25 Lipase 266 U/L (13-60) H 04/23/24 14:25 Discharge Plan Discharge Patient Disposition: Home Clinical Impression: Abdominal pain Qualifiers: Abdominal location: epigastric Qualified Code(s): R10.13 - Epigastric pain Condition: Stable Prescriptions: New tramadol 50 mg tablet 50 mg PO Q8H PRN (Reason: pain) Qty: 14 0RF No Action Mirena 20 mcg/24 hours (6 yrs) 52 mg intrauterine device See Rx Instructions .ROUTE .COMPLEX Patient Comments: Inserted January 2019 Rx Instructions: intrauterinely, use as directed Trintellix 20 mg tablet PO hydroxyzine HCl 25 mg tablet PO clonazepam 0.5 mg tablet 0.5 mg PO BID PRN (Reason: anxiety) Qty: 60 0RF docusate sodium 100 mg Capsule 100 mg PO BID PRN (Reason: constipation) Qty: 30 0RF Discharge Orders: Discharge ED (Routine); Ordered 04/23/24 Ordered By: Adolph Simms Referrals: Truman Lizarraga MD [Primary Care Provider] - 1 week Patient Instructions: Abdominal Pain (ED) Activity Restrictions/Additional Instructions: Your evaluation ER that included lab work and CT scan were essentially unremarkable, white count was 9.01, AST 42, ALT 84, CRP 17.5, CT scan your abdomen pelvis with contrast with your be given to you on a disk please stop by tomorrow after 8 AM to pick it up.. Please keep your appointment with your surgeon tomorrow. Tramadol will be provided for your pain as a hydrocodone appears to make you jittery. Coding Level of Care Code ED Management Advisor for Chg Fwd Documented by User: Adolph Simms DO 04/23/24 22:52 HPI - Chest Pain 2 General: Chief Complaint: Chest Pain Stated Complaint: CP SOB Time Seen by Provider: 04/23/24 14:02 Related Data Home Medications Medication Instructions Recorded Confirmed levonorgestrel 21 mcg/24 hr (up to See Rx Instructions .Route .COMPLEX 09/09/20 04/23/24 8 years) 52 mg intrauterine device (Mirena) hydroxyzine HCl 25 mg tablet mg PO 11/14/23 04/23/24 vortioxetine 20 mg tablet mg PO 11/14/23 04/23/24 (Trintellix) Previous Rx's Medication Instructions Recorded docusate sodium 100 mg capsule 100 mg PO BID PRN constipation #30 04/29/21 caps clonazepam 0.5 mg tablet 0.5 mg PO BID PRN anxiety #60 tabs 12/27/21 tramadol 50 mg tablet 50 mg PO Q8H PRN pain #14 tabs 04/23/24 Allergies Allergy/AdvReac Type Severity Reaction Status Date / Time ciprofloxacin [From Cipro] Allergy Intermediate ADR-Nausea Verified 04/23/24 08:52 Penicillins Allergy KSMH-Qzif-lnvxh Verified 04/23/24 08:52 took Keflex [facility] ED 2 PFSH: Medical History Endometriosis Diagnosed at the age of 15 and had a laparoscopy at [facility] in [facility] with anxiety Diagnosed at the age of 17 and has been on medication and therapy. No pertinent past medical history Denies diabetes, asthma, hypertension, seizures, DVT/PE PCP: Dr. Franco Surgical History Hx of tubal ligation (~10/28/22) Exploratory laparotomy did not identify endometriosis; performed by Dr. Arboleda at [place] History of vaginal surgery 04/29/2021--excision of 4 cm cyst from posterior vaginal wall performed by Dr. Burch [place] [facility] [place] Pathology showed benign cyst without malignancy S/P laparoscopic cholecystectomy In 2017 Status post laparoscopy 2014--diagnostic laparoscopy with removal and ablation of endometriosis performed by Dr. Chaney in [facility]--these records have been requested and received and scanned. -----> 03/17/2015--multiple implants of endometriosis 2 on the anterior bladder flap, 5 on the left posteriorly, uterosacral ligaments bilaterally and all of these lesions were vaporized with laser. 2 implants on the left side overlying ureter which were not vaporized Family History Grandfather Colon cancer maternal, daignosed at age 70 Diabetes maternal Heart disease maternal Hyperlipidemia maternal Mother Hypertension Endometriosis Sister Endometriosis Denies family history of Ovarian cancer Breast cancer Uterine cancer Thyroid disease Stroke Social History (Reviewed 04/23/24 @ 15:37 by EDMUNDO Méndez Smoking and tobacco/nicotine status: never used tobacco/nicotine Course 2 Vital Signs: Vital signs: Vital Signs Temperature 98.1 F 04/23/24 13:46 Pulse Rate 87 04/23/24 20:06 Respiratory Rate 15 04/23/24 20:06 Blood Pressure 128/89 04/23/24 20:06 Pulse Oximetry 99 04/23/24 20:06 Oxygen Delivery Me thod Room Air 04/23/24 19:31 MDM - Chest Pain Medical Decision Making Care transferred to myself at shift change, lab work was reviewed as well as chest x-ray and CT scan of the abdomen pelvis, patient was feeling somewhat better after the morphine, patient says hydrocodone gives her the jitters. We tried tramadol here in ER which seemed to work decent. Patient already has an appointment with her surgeon tomorrow at 1 PM in [place]. We will give her her results today on the disc discharge her and have her follow-up with him. Patient is agreeable to this. Medical Records I reviewed the patient's medical records. Lab Data I reviewed the patient's lab results. 04/23/24 14:25 04/23/24 14:25 Radiology Impressions Chest X-Ray 04/23/24 15:32 IMPRESSION: 1. No acute cardiopulmonary finding. Chest/Abdomen CTA 04/23/24 15:33 IMPRESSION: 1. No definite evidence of pulmonary emboli. 2. Scattered areas of air trapping can be seen with chronic small airways disease. 3. Status post cholecystectomy. 4. Status post Ofelia-en-Y gastric bypass. Small air and fluid in the excluded stomach could represent suture line dehiscence. This could be further assessed with barium swallow study if warranted. COMMENTS: Consistent with the [place] [employer]'s Incidental Findings Committee white paper (J Am Penny Radiol 2018): Any incidental renal lesion less than 1 cm or classified as too small to characterize, or any incidental cystic renal lesion characterized as simple-appearing, is likely benign. No follow-up imaging is recommended for these lesions per consensus recommendations based on imaging criteria. Laboratory Results WBC 9.01 10^3/uL (3.29-11.43) 04/23/24 14:25 RBC 5.41 10^6/uL (3.85-5.65) 04/23/24 14:25 Hgb 16.00 g/dL (11.27-16.99) 04/23/24 14:25 Hct 46.4 % (36-47) 04/23/24 14:25 MCV 85.8 fl (85-98) 04/23/24 14:25 MCH 29.6 pg (27-33) 04/23/24 14:25 MCHC 34.5 g/dL (30-55) 04/23/24 14:25 RDW 13.0 % (12.1-15.1) 04/23/24 14:25 Plt Count 379 10^3/cmm (157-399) 04/23/24 14:25 MPV 10.7 fL (7.4-10.4) H 04/23/24 14:25 Neut % (Auto) 57.5 % 04/23/24 14:25 Lymph % (Auto) 28.0 % 04/23/24 14:25 [place] % (Auto) 5.8 % 04/23/24 14:25 Eos % (Auto) 5.4 % 04/23/24 14:25 Baso % (Auto) 1.0 % 04/23/24 14:25 Neut # (Auto) 5.18 10^3/uL (1.8-7.7) 04/23/24 14:25 Lymph # (Auto) 2.5 10^3/uL (0.8-4.8) 04/23/24 14:25 [place] # (Auto) 0.5 10^3/uL (0.2-0.9) 04/23/24 14:25 Eos # (Auto) 0.5 10^3/uL (0.0-0.8) 04/23/24 14:25 Baso # (Auto) 0.1 10^3/uL (0.0-0.1) 04/23/24 14: Nucleated RBC % (auto) 0 % 04/23/24 14: Nucleated RBCs # 0.0 /100WBC 04/23/24 14:25 Sodium 137 mmol/L (136-145) 04/23/24 14:25 Potassium 3.4 mmol/L (3.5-5.1) L 04/23/24 14:25 Chloride 100 mmol/L (98-107) 04/23/24 14:25 Carbon Dioxide 18 mmol/L (22-29) L 04/23/24 14:25 Anion Gap 22.4 (5-19) H 04/23/24 14:25 BUN 7 mg/dL (6-20) 04/23/24 14:25 Creatinine 0.6 mg/dL (0.5-0.9) 04/23/24 14:25 GFR Calculation 117.4 mL/min (90-130) 04/23/24 14:25 Glucose 85 mg/dL (65-115) 04/23/24 14:25 Calculated Osmolality 281 mOsm/kg (285-295) L 04/23/24 14:25 Lactic Acid 1.1 mmol/L (0.5-2.2) 04/23/24 14:25 Calcium 8.9 mg/dL (8.5-10.5) 04/23/24 14:25 Total Bilirubin 0.5 mg/dL (0.15-1.2) 04/23/24 14:25 AST 42 U/L (0-32) H 04/23/24 14:25 ALT 84 U/L (0-33) H 04/23/24 14:25 Alkaline Phosphatase 76 U/L (35-105) 04/23/24 14:25 C-Reactive Protein 17.5 mg/L (0.0-4.9) H 04/23/24 14:25 Total Protein 8.2 g/dL (6.6-8.7) 04/23/24 14:25 Albumin 4.5 g/dL (3.5-5.2) 04/23/24 14:25 Globulin 3.7 g/dL (1.3-4.6) 04/23/24 14:25 Lipase 266 U/L (13-60) H 04/23/24 14:25 All radiology interpretation(s) finalized by discharge Discharge Plan Discharge Patient Disposition: Home Clinical Impression: Abdominal pain Qualifiers: Abdominal location: epigastric Qualified Code(s): R10.13 - Epigastric pain Condition: Stable Prescriptions: New tramadol 50 mg tablet 50 mg PO Q8H PRN (Reason: pain) Qty: 14 0RF No Action Mirena 20 mcg/24 hours (6 yrs) 52 mg intrauterine device See Rx Instructions .ROUTE .COMPLEX Patient Comments: Inserted January 2019 Rx Instructions: intrauterinely, use as directed Trintellix 20 mg tablet PO hydroxyzine HCl 25 mg tablet PO clonazepam 0.5 mg tablet 0.5 mg PO BID PRN (Reason: anxiety) Qty: 60 0RF docusate sodium 100 mg Capsule 100 mg PO BID PRN (Reason: constipation) Qty: 30 0RF Discharge Orders: Discharge ED (Routine); Ordered 04/23/24 Ordered By: Adolph Simms Referrals: Truman Lizarraga MD [Primary Care Provider] - 1 week Patient Instructions: Abdominal Pain (ED) Activity Restrictions/Additional Instructions: Your evaluation ER that included lab work and CT scan were essentially unremarkable, white count was 9.01, AST 42, ALT 84, CRP 17.5, CT scan your abdomen pelvis with contrast with your be given to you on a disk please stop by tomorrow after 8 AM to pick it up.. Please keep your appointment with your surgeon tomorrow. Tramadol will be provided for your pain as a hydrocodone appears to make you jittery. Coding Level of Care Code ED Management Advisor for Zhang Thurston
[2024-04-23 15:16] LABS: Lactic Sepsis W/Reflex 1.1 mmol/L (0.5-2.2)
--- NOTE | 2024-04-23 15:32 | XR_ITS ---
WS: [id number] Exam: XR chest 1V portable [id number] Date/Time of Exam: 04/23/2024 3:32 PM Reason For Exam: dyspnea/cough Comparison 01/15/2022. The lungs are clear and fully expanded. Normal cardiomediastinal silhouette and regional bony element s. Areas of plaque atelectasis in the bilateral lower lung zones. XR/XR chest 1V portable [id number] IMPRESSION: 1. No acute cardiopulmonary finding.
--- NOTE | 2024-04-23 15:33 | CTR_ITS ---
PROCEDURE INFORMATION: Exam: CTA Chest With Contrast CTA Abdomen With Contrast Exam date and time: 04/23/2024 4:04 PM Age: 28 years old Clinical indication: Chest pressure; Abdominal pain; Acute; Additional info: Dyspnea/abd pain TECHNIQUE: Imaging protocol: Computed tomographic angiography of the chest with contrast. Exam focused on the arteries. Computed tomographic angiography of the abdomen with contrast. Exam focused on the arteries. 3D rendering (Not supervised by radiologist): MIP and/or 3D reconstructed images were created by the technologist. Radiation optimization: All CT scans at this facility use at least one of these dose optimization techniques: automated exposure control; mA and/or kV adjustment per patient size (includes targeted exams where dose is matched to clinical indication); or iterative reconstruction. Contrast material: OMNIPAQUE 350; Contrast volume: 100 ml; Contrast route: INTRAVENOUS (IV); COMPARISON: CT kidney stone [id number] 06/15/2022 9:27 PM RADIATION DOSE METRICS: Total DLP (mGy-cm): 1185.23 FINDINGS: VASCULATURE: Pulmonary arteries: Normal. No pulmonary emboli. Aorta: No aortic aneurysm. No aortic dissection. Celiac trunk and mesenteric arteries: No occlusion or significant stenosis. Renal arteries: No occlusion or significant stenosis. CHEST: Trachea: The central airways are patent. Lungs: Scattered hypoventilatory changes throughout the lungs bilaterally, most pronounced in the lower lobes. Areas of mosaic attenuation with air trapping are also seen. Subsegmental atelectasis in bilateral lower lobes. No suspicious pulmonary nodules. Pleural spaces: Unremarkable. No pneumothorax. No pleural effusion. Heart: Unremarkable. No cardiomegaly. No pericardial effusion. ABDOMEN AND PELVIS: Liver: No mass. Gallbladder and biliary ducts: Status post cholecystectomy. Pancreas: Unremarkable. No mass. No ductal dilation. Spleen: Unremarkable. No splenomegaly. Adrenal glands: Unremarkable. No mass. Kidneys: Subcentimeter renal hypodensities bilaterally are too small to characterize but likely represent cysts. No hydronephrosis. Stomach and bowel: Status post Ofelia-en-Y gastric bypass. A small amount of air and fluid is seen in the excluded stomach. Intraperitoneal space: Unremarkable. No free air. No significant fluid collection. Lymph nodes: Calcified mediastinal and right hilar lymph nodes from prior granulomatous disease. No lymphadenopathy by size criteria. Bones/joints: Unremarkable. No acute fracture. Soft tissues: Mild multifocal areas of subcutaneous fat stranding anteriorly in the abdominal wall. CT/CT angio chest abd [id number] IMPRESSION: 1. No definite evidence of pulmonary emboli. 2. Scattered areas of air trapping can be seen with chronic small airways disease. 3. Status post cholecystectomy. 4. Status post Ofelia-en-Y gastric bypass. Small air and fluid in the excluded stomach could represent suture line dehiscence. This could be further assessed with barium swallow study if warranted. COMMENTS: Consistent with the [employer]'s Incidental Findings Committee white paper (J Am Penny Radiol 2018): Any incidental renal lesion less than 1 cm or classified as too small to characterize, or any incidental cystic renal lesion characterized as simple-appearing, is likely benign. No follow-up imaging is recommended for these lesions per consensus recommendations based on imaging criteria.
[2024-04-23 15:42] VITALS: BP 123/85; PULSE 96; O2SAT 99
[2024-04-23] MEDS: iohexol 350 mg/mL 500 mL Btl (per mL) IV (16:10)
[2024-04-23] MEDS: ondansetron 2 mg/ML SDV 2 mL 4 MG IVP (16:31)
[2024-04-23] MEDS: morphine 4 mg/mL SDV 1 mL IVP (16:34)
[2024-04-23 16:36] VITALS: BP 139/83; PULSE 85; O2SAT 98
[2024-04-23] MEDS: sodium chloride 0.9% 500 ML IV (16:36)
[2024-04-23] MEDS: TRAMadol 50 mg Tablet 100 MG PO (19:14)
[2024-04-23 19:16] VITALS: BP 152/87; PULSE 86; RESP 20; O2SAT 100
[2024-04-23 19:31] VITALS: BP 119/75; PULSE 80; RESP 24; O2SAT 100
[2024-04-23 20:06] VITALS: BP 128/89; PULSE 87; RESP 15; O2SAT 99
== END 2024-04-23 20:09 | disposition home or self-care (01) ==
PROVIDERS: Emergency Medicine; Emergency Provider Family Medicine; PCP Family Medicine
DX: R10.13 Epigastric pain (principal)
CPT/HCPCS: 36415; 71045; 71275; 74175; 80053; 83605; 83690; 85025; 86140; 87040; 96374; 96375; 99285; J2270; J2405; J7040